=== PATIENT | male | born 1965 | race Caucasian/White ===

== ENCOUNTER 2018-10-03 10:03 | Inpatient (IN) | payer BC, SELFPAY ==
[2018-10-03] VITALS (76 sets, daily range): BP systolic 107–155; BP diastolic 64–94; PULSE 61–87; RESP 9–25; TEMP 36.5–36.7; O2SAT 94–100
--- NOTE | 2018-10-03 10:31 | NUR.NOTE ---
MD Pina is at the bedside.
--- NOTE | 2018-10-03 10:49 | DI.RAD_ITS ---
SYMPTOM/DIAGNOSIS: CHEST PAIN PORTABLE AP CHEST: 10/03 The heart is not enlarged. The lungs are clear and well expanded. CONCLUSION: No evidence of acute disease.
[2018-10-03] MEDS: Aspirin 81 MG CHEW 324 MG CH (10:55)
[2018-10-03 11:03] LABS: Abs Immature Grans 0.02 k/cumm (0.0-0.09); Absolute Basophil Count 0.03 k/cumm (0.0-0.2); Absolute Eosinophil Count 0.11 k/cumm (0.0-0.7); Absolute Lymphocyte Count 2.32 k/cumm (1.2-3.4); Absolute Monocyte Count 0.61 k/cumm (0.11-0.7); Absolute Neutrophil Count 4.59 k/cumm (1.2-6.7); Basophils % 0.4; Eosinophils % 1.4; HCT 47.4 % (40.0-50.0); HGB 16.5 g/dL (13.5-17.5); Immature Grans % 0.3; Lymphocytes % 30.2; Mean Corp. HGB Concentration 34.8 g/dL (32.0-36.0); Mean Corpuscular Hemoglobin 32.5 pg (27.0-33.0); Mean Corpuscular Volume 93.5 fL (80-95); Mean Platelet Volume 10.5 fL (8.0-11.0); Monocytes % 7.9; Neutrophils % 59.8; Platelet Count 200 x1000/uL (130-400); RBC 5.07 m/cumm (4.50-6.00); RBC Distribution Width 12.8 % (11.8-14.1); White Blood Cell Count 7.68 k/cumm (4.4-10.8)
[2018-10-03 11:23] LABS: ALT 36 U/L (12-78); AST 32 U/L (15-37); Albumin 3.6 g/dL (3.4-5.0); Alkaline Phosphatase 46 U/L (46-116); Anion Gap 8.8 mmol/L (3-11); BUN 6 mg/dL (7-18); Bilirubin, Total 0.3 mg/dL (0.2-1.0); CO2 28.2 mmol/L (21.0-32.0); CREATININE 0.67 mg/dL (0.70-1.30); Calcium 8.9 mg/dL (8.5-10.1); Chloride 102 mmol/L (98-107); Glucose 94 mg/dL (70-100); Magnesium 1.7 mg/dL (1.8-2.4); Sodium 139 mmol/L (136-145); Total Protein 7.2 g/dL (6.4-8.2)
[2018-10-03 11:27] LABS: Troponin I 0.09 ng/mL (0.00-0.06)
--- NOTE | 2018-10-03 11:28 | W.ED.GENAD ---
Discharge Plan Disposition Condition: Stable Discharge Details Chief Complaint: Chest Pain Reason For Visit: NSTEMI Admit Date/Time: 10/03/18 12:02 Admit Provider: Gutierrez Lipscomb Attending Provider: Gutierrez Lipscomb Primary Care Provider: Sujey Harvey ED Provider: Wiliam Pina Discharge Orders Discharge Orders: Discharge Order (Routine); Ordered 10/03/18 Ordered By: Gutierrez Lipscomb Discharge Data Discharge Date/Time-TO BE ENTERED AT DEPARTURE: 10/03/18 21:41 Medical Decision Making 11:40 -- Patient was seen immediately on arrival. 52-year-old male presents with abnormal EKG showing ST depressions and intermittent chest tightness. No chest pain on exam. Patient is hemodynamically stable. ECG reviewed and interpreted by me: Sinus rhythm 64 bpm, normal axis, T wave inversions with ST depressions noted in leads II, 3, aVF, V3 to V6, there is less than [address] elevation noted in V1 and V2. High concern for ACS. Troponin 0.09. Plan to treat with heparin bolus and infusion, aspirin, Plavix. I will call [facility] cardiology to request transfer. 11:47 -- Spoke with [facility] transfer center - emergent transfer request refused, states not able to accept cardiac patients. 11:54 -- Dr. Saravia will accept patient in transfer but no beds immediately available - may not be able to accept today. Plan to admit to ICU pending transfer. HPI General Mode of arrival: ambulatory. Date/Time Provider Initiated Documentation: 10/03/18 10:49. Limitations to Documentation: no limitations. Information obtained by: patient. HPI Narrative: 52-year-old male smoker, here with a chief complaint of abnormal EKG. Patient notes he was having retinal eye surgery on 09/18/2018 and there is noted to be some changes on the monitor -he specifically notes that they told him he had ST depressions. He did not have any chest pain at that time and he was instructed to follow-up with his primary care physician. He followed up with his primary care physician who ordered a stress test which she was going to have today. In the cardiac stress lab he was noted to have abnormal EKG with ST depressions and mild chest pain at that time. Stress test was cancelled and he was directed to come to the emergency department. At this time he has no chest pain. He has had mild intermittent chest tightness over the past few weeks. Symptoms can occur at rest. He has a few episodes a day that are brief in duration. They are not associated with exertion but he does have some dyspnea on exertion. He denies leg swelling or calf pain. No shortness of breath at this time. Related Data Home Medications Medication Instructions Recorded Confirmed atropine 1 drp OPHTHALMIC (EYE) ONCE 10/03/18 10/03/18 moxifloxacin 1 drp OPHTHALMIC (EYE) QID 10/03/18 10/03/18 prednisolone acetate 1 drp OPHTHALMIC (EYE) Q4H 10/03/18 10/03/18 Allergies Allergy/AdvReac Type Severity Reaction Status Date / Time No Known Allergies Allergy Unverified 10/03/18 10:29 General Stated Complaint: Chest Pain MARISOL: 2 Review of Systems Review of Systems All systems reviewed & are unremarkable except as noted in HPI and below PFSH Social History Smoking/Tobacco Use Status: Current every day Social History Smoking/Tobacco Use Status: Current every day Exam Const General: cooperative and no acute distress HENMT Head: normocephalic and atraumatic Mouth: moist mucous membranes Eyes Conjunctivae: normal conjunctivae Sclera: normal sclerae EOM: EOM intact bilaterally Neck Neck: trachea midline and supple Resp Auscultation: clear to auscultation bilaterally, no rales, no rhonchi and no wheezes Cardio Jugular venous pressure: no JVD Rate: regular rate and not tachycardic Rhythm: regular rhythm GI Palpation: soft, not firm, no guarding, no masses, not rigid and nontender Skin General skin exam: no rashes or lesions noted Neuro General: alert, awake, oriented x3 and tone normal Extrem General: no calf tenderness bilaterally and no edema Psych Appearance: grossly normal Mental Status: mental status grossly normal Speech and Movement: speech and movement normal Course Vital Signs Temperature 36.7 C 10/03/18 10:15 Pulse 69 10/03/18 10:15 Respiratory Rate 14 10/03/18 10:15 Blood Pressure 134/86 10/03/18 10:15 Pulse Oximetry 99 10/03/18 10:15 Temperature 36.7 C 10/03/18 10:15 Temperature Source Temporal Artery Scan 10/03/18 10:15 Pulse 69 10/03/18 10:15 Respiratory Rate 14 10/03/18 10:15 Blood Pressure 134/86 10/03/18 10:15 Blood Pressure Position Sitting 10/03/18 10:15 Pulse Oximetry 99 10/03/18 10:15 Oxygen Delivery Method Room Air 10/03/18 10:15 Oxygen Flow Rate 0 10/03/18 10:15 Pain Level 1 10/03/18 10:15 Comment 10/03/18 10:15 Lab/Test Results Lab/Test Results: Laboratory Tests Range/Units 10/03/18 10:45 WBC (4.4-10.8) k/cumm 7.68 RBC (4.50-6.00) m/cumm 5.07 Hgb (13.5-17.5) g/dL 16.5 Hct (40.0-50.0) % 47.4 MCV (80-95) fL 93.5 MCH (27.0-33.0) pg 32.5 MCHC (32.0-36.0) g/dL 34.8 RDW (11.8-14.1) % 12.8 Plt Count (130-400) x1000/uL 200 MPV (8.0-11.0) fL 10.5 Immature Gran % 0.3 Neutrophils % 59.8 Lymphocytes % 30.2 Monocytes % 7.9 Eosinophils % 1.4 Basophils % 0.4 Absolute Neutrophils (1.2-6.7) k/cumm 4.59 Absolute Lymphocytes (1.2-3.4) k/cumm 2.32 Absolute Monocytes (0.11-0.7) k/cumm 0.61 Absolute Eosinophils (0.0-0.7) k/cumm 0.11 Absolute Basophils (0.0-0.2) k/cumm 0.03 Critical Care Time Critical Care Time: Yes Total Critical Care Time: 40 Attestation: I spent greater than 40 minutes addressing this patient's immediate life threats
--- NOTE | 2018-10-03 11:28 | NUR.NOTE ---
Pt. resting in NAD, VSS on the monitor. Troponing resulted at 0.09, MD aware and entering orders currently.
--- NOTE | 2018-10-03 11:32 | ED.GENADUL_ITS ---
Discharge Plan Disposition Condition: Stable Discharge Details Chief Complaint: Chest Pain Reason For Visit: NSTEMI Admit Date/Time: 10/03/18 12:02 Admit Provider: Gutierrez Lipscomb Attending Provider: Gutierrez Lipscomb Primary Care Provider: Sujey Harvey ED Provider: Wiliam Pian Discharge Orders Discharge Orders: Discharge Order (Routine); Ordered 10/03/18 Ordered By: Gutierrez Lipscomb Discharge Data Discharge Date/Time-TO BE ENTERED AT DEPARTURE: 10/03/18 21:41 Medical Decision Making 11:40 -- Patient was seen immediately on arrival. 52-year-old male presents with abnormal EKG showing ST depressions and intermittent chest tightness. No chest pain on exam. Patient is hemodynamically stable. ECG reviewed and interpreted by me: Sinus rhythm 64 bpm, normal axis, T wave inversions with ST depressions noted in leads II, 3, aVF, V3 to V6, there is less than [address] elevation noted in V1 and V2. High concern for ACS. Troponin 0.09. Plan to treat with heparin bolus and infusion, aspirin, Plavix. I will call [facility] [place] to request transfer. 11:47 -- Spoke with [facility] [place] - emergent transfer request refused, states not able to accept cardiac patients. 11:54 -- Dr. Saravia will accept patient in transfer but no beds immediately available - may not be able to accept today. Plan to admit to ICU pending transfer. HPI General Mode of arrival: ambulatory . Date/Time Provider Initiated Documentation: 10/03/18 10:49 . Limitations to Documentation: no limitations . Information obtained by: patient . HPI Narrative: 52-year-old male smoker, here with a chief complaint of abnormal EKG. Patient notes he was having retinal eye surgery on 09/18/2018 and there is noted to be some changes on the monitor -he specifically notes that they told him he had ST depressions. He did not have any chest pain at that time and he was instructed to follow-up with his primary care physician. He followed up with his primary care physician who ordered a stress test which she was going to have today. In the cardiac stress lab he was noted to have abnormal EKG with ST depressions and mild chest pain at that time. Stress test was cancelled and he was directed to come to the emergency department. At this time he has no chest pain. He has had mild intermittent chest tightness over the past few weeks. Symptoms can occur at rest. He has a few episodes a day that are brief in duration. They are not associated with exertion but he does have some dyspnea on exertion. He denies leg swelling or calf pain. No shortness of breath at this time. Related Data Home Medications Medication Instructions Recorded Confirmed atropine 1 drp OPHTHALMIC (EYE) ONCE 10/03/18 10/03/18 moxifloxacin 1 drp OPHTHALMIC (EYE) QID 10/03/18 10/03/18 prednisolone acetate 1 drp OPHTHALMIC (EYE) Q4H 10/03/18 10/03/18 Allergies Allergy/AdvReac Type Severity Reaction Status Date / Time No Known Allergies Allergy Unverified 10/03/18 10:29 General Stated Complaint: Chest Pain MARISOL: 2 Review of Systems Review of Systems All systems reviewed & are unremarkable except as noted in HPI and below PFSH Social History Smoking/Tobacco Use Status: Current every day Social History Smoking/Tobacco Use Status: Current every day Exam Const General: cooperative and no acute distress HENMT Head: normocephalic and atraumatic Mouth: moist mucous membranes Eyes Conjunctivae: normal conjunctivae Sclera: normal sclerae EOM: EOM intact bilaterally Neck Neck: trachea midline and supple Resp Auscultation: clear to auscultation bilaterally, no rales, no rhonchi and no wheezes Cardio Jugular venous pressure: no JVD Rate: regular rate and not tachycardic Rhythm: regular rhythm GI Palpation: soft, not firm, no guarding, no masses, not rigid and nontender Skin General skin exam: no rashes or lesions noted Neuro General: alert, awake, oriented x3 and tone normal Extrem General: no calf tenderness bilaterally and no edema Psych Appearance: grossly normal Mental Status: mental status grossly normal Speech and Movement: speech and movement normal Course Vital Signs Temperature 36.7 C 10/03/18 10:15 Pulse 69 10/03/18 10:15 Respiratory Rate 14 10/03/18 10:15 Blood Pressure 134/86 10/03/18 10:15 Pulse Oximetry 99 10/03/18 10:15 Temperature 36.7 C 10/03/18 10:15 Temperature Source Temporal Artery Scan 10/03/18 10:15 Pulse 69 10/03/18 10:15 Respiratory Rate 14 10/03/18 10:15 Blood Pressure 134/86 10/03/18 10:15 Blood Pressure Position Sitting 10/03/18 10:15 Pulse Oximetry 99 10/03/18 10:15 Oxygen Delivery Method Room Air 10/03/18 10:15 Oxygen Flow Rate 0 10/03/18 10:15 Pain Level 1 10/03/18 10:15 Comment 10/03/18 10:15 Lab/Test Results Lab/Test Results: Laboratory Tests Range/Units 10/03/18 10:45 WBC (4.4-10.8) k/cumm 7.68 RBC (4.50-6.00) m/cumm 5.07 Hgb (13.5-17.5) g/dL 16.5 Hct (40.0-50.0) % 47.4 MCV (80-95) fL 93.5 MCH (27.0-33.0) pg 32.5 MCHC (32.0-36.0) g/dL 34.8 RDW (11.8-14.1) % 12.8 Plt Count (130-400) x1000/uL 200 MPV (8.0-11.0) fL 10.5 Immature Gran % 0.3 Neutrophils % 59.8 Lymphocytes % 30.2 Monocytes % 7.9 Eosinophils % 1.4 Basophils % 0.4 Absolute Neutrophils (1.2-6.7) k/cumm 4.59 Absolute Lymphocytes (1.2-3.4) k/cumm 2.32 Absolute Monocytes (0.11-0.7) k/cumm 0.61 Absolute Eosinophils (0.0-0.7) k/cumm 0.11 Absolute Basophils (0.0-0.2) k/cumm 0.03 Critical Care Time Critical Care Time: Yes Total Critical Care Time: 40 Attestation: I spent greater than 40 minutes addressing this patient's immediate life threats
[2018-10-03] MEDS: Clopidogrel 300 MG TAB PO (12:01)
--- NOTE | 2018-10-03 12:30 | MERGE_ITS ---
*[facility]* *[facility]* [address] [place] [address] Date of study: 10/03/2018 Transthoracic Echocardiography M-mode, complete 2D, complete spectral Doppler, and color Doppler *STUDY CONCLUSIONS* Summary: 1. Left ventricle: The cavity size was normal. Wall thickness was increased in a pattern of mild LVH. Systolic function was normal. The estimated ejection fraction was 55-60%. Wall motion was normal; there were no regional wall motion abnormalities. 2. Right ventricle: The cavity size was normal. Systolic function was normal. 3. Pulmonary arteries: Pulmonary systolic pressure was increased, in the range of 40mm Hg to 45mm Hg. 4. Inferior vena cava: The vessel was patent and normal in size. The respirophasic diameter changes were in the normal range (greater than or equal to 50%), consistent with normal central venous pressure. *PATIENT PRESENTATION* Height: 177.8cm ((70in) ) S/D Pressure: 118 / 78 Weight: 76.2kg ((167.6lb) ) BSA: 1.95m^2 Test start time: 12:45 PM. Test stop time: 01:45 PM. 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 This study was interpreted by [facility]. Pertinent images and digital data are archived for permanent storage and are available for subsequent review. No prior study was available for comparison. Study status: STAT. Transthoracic echocardiography. M-mode, complete 2D, complete spectral Doppler, and color Doppler. A Transthoracic Echocardiogram was performed. Scanning was performed from the parasternal, apical, subcostal, and suprasternal notch acoustic windows. Images were obtained using an [id number] cardiac ultrasound machine. Image quality was adequate. Study completion: The patient tolerated the procedure well. There were no complications. History: PMH: NSTEMI. *CARDIAC ANATOMY* Left ventricle: The cavity size was normal. Wall thickness was increased in a pattern of mild LVH. Systolic function was normal. The estimated ejection fraction was 55-60%. Wall motion was normal; there were no regional wall motion abnormalities. Findings consistent with diastolic dysfunction. There was no evidence of elevated ventricular filling pressure by Doppler parameters. Aortic valve: Trileaflet; mildly thickened leaflets. Mobility was not restricted. Doppler: Transvalvular velocity was within the normal range. There was no stenosis. There was no significant regurgitation. VTI ratio of LVOT to aortic valve: 0.86. Valve area (VTI): 2.4cm^2. Indexed valve area (VTI): 1.2cm^2/m^2. Peak velocity ratio of LVOT to aortic valve: 0.77. Valve area (Vmax): 2.1cm^2. Indexed valve area (Vmax): 1.1cm^2/m^2. Mean velocity ratio of LVOT to aortic valve: 0.76. Valve area (Vmean): 2.1cm^2. Indexed valve area (Vmean): 1.1cm^2/m^2. Mean gradient (S): 3mm Hg. Peak gradient (S): 4.9mm Hg. Aorta: Aortic root: The aortic root was normal in size. Ascending aorta: The ascending aorta was normal in size. Mitral valve: Mildly thickened leaflets. Mobility was not restricted. Doppler: Transvalvular velocity was within the normal range. There was no evidence for stenosis. There was trivial regurgitation. Valve area by pressure half-time: 2.6cm^2. Indexed valve area by pressure half-time: 1.3cm^2/m^2. Left atrium: The atrium was normal in size. Right ventricle: The cavity size was normal. Systolic function was normal. Pulmonic valve: Poorly visualized. Doppler: Transvalvular velocity was within the normal range. There was no evidence for stenosis. There was trivial regurgitation. Tricuspid valve: Structurally normal valve. Doppler: Transvalvular velocity was within the normal range. There was no evidence for stenosis. There was mild regurgitation. Pulmonary artery: Poorly visualized. Pulmonary systolic pressure was increased, in the range of 40mm Hg to 45mm Hg. Right atrium: The atrium was normal in size. Pericardium: There was no pericardial effusion. Systemic veins: Inferior vena cava: Well visualized. The vessel was patent and normal in size. The respirophasic diameter changes were in the normal range (greater than or equal to 50%), consistent with normal central venous pressure. Baseline ECG: Normal sinus rhythm. Measurements Left ventricle Value Reference LV ID, ED, PLAX 4.2 cm 3.5 - 6.0 LV ID, ES, PLAX 2.8 cm 2.1 - 4.0 LV PW thickness, ED, PLAX 1.0 cm LV end-diastolic volume, 1-p A2C 54 ml LV ejection fraction, 1-p A2C 59 % LV end-diastolic volume, 1-p A4C 43 ml LV ejection fraction, 1-p A4C 65 % LV e', lateral 0.116 m/sec LV E/e', lateral 5 LV e', medial 0.082 m/sec LV E/e', medial 8 LV e', average 0.099 m/sec LV E/e', average 6 Ventricular septum Value Reference IVS thickness, ED, PLAX 1.5 cm LVOT Value Reference LVOT ID, A-P 1.9 cm LVOT area 2.7 cm^2 LVOT peak velocity, S 0.85 m/sec LVOT mean velocity, S 0.63 m/sec LVOT VTI, S 19.9 cm LVOT peak gradient, S 2.9 mm Hg LVOT mean gradient, S 1.7 mm Hg Stroke volume (SV), LVOT DP 54 ml Stroke index (SV/bsa), LVOT DP 28 ml/m^2 Aortic valve Value Reference Aortic valve peak velocity, S 1.1 m/sec Aortic valve mean velocity, S 0.83 m/sec Aortic valve VTI, S 23.0 cm Aortic mean gradient, S 3 mm Hg Aortic peak gradient, S 4.9 mm Hg VTI ratio, LVOT/AV 0.86 Aortic valve area, VTI 2.4 cm^2 Velocity ratio, peak, LVOT/AV 0.77 Aortic valve area, peak velocity 2.1 cm^2 Velocity ratio, mean, LVOT/AV 0.76 Aortic valve area, mean velocity 2.1 cm^2 Aortic valve area/bsa, mean velocity 1.1 cm^2/m^2 Aorta Value Reference Aortic root ID, ED 2.8 cm Ascending aorta ID, A-P, S 2.4 cm Left atrium Value Reference LA ID, A-P, ES 2.8 cm LA ID/bsa, A-P 1.5 cm/m^2 <=2.2 LA area, ES, A4C 19.2 cm^2 8.8 - 23.4 LA area, ES, A2C 16 cm^2 LA volume/bsa, ES, 1-p A4C 28 ml/m^2 LA volume, ES, 2-p 47 ml LA volume/bsa, ES, 2-p 24 ml/m^2 LA/aortic root ratio 1.02 Mitral valve Value Reference Mitral E-wave peak velocity 0.63 m/sec Mitral A-wave peak velocity 0.35 m/sec Mitral deceleration time (H) 298 ms 150 - 230 Mitral pressure half-time 86 ms Mitral E/A ratio, peak 1.8 Mitral valve area, PHT, DP 2.6 cm^2 Pulmonary veins Value Reference Pulmonary vein peak velocity, S 0.62 m/sec Pulmonary vein peak velocity, D 0.6 m/sec Pulmonary vein velocity ratio, peak, 1.03 S/D Tricuspid valve Value Reference Tricuspid regurg peak velocity 3.1 m/sec Tricuspid peak RV-RA gradient 37.9 mm Hg Right atrium Value Reference RA area, ES, A4C 12 cm^2 8.3 - 19.5 Legend: (L) and (H) michele values outside specified reference range. I have personally reviewed the images and have reviewed and edited the reported findings. Electronically signed by Jesu Mckeon 10/03/2018 14:38
[2018-10-03] MEDS: Metoprolol 12.5 MG TAB PO (13:07)
--- NOTE | 2018-10-03 13:14 | NUR.NOTE ---
Echo in progress at the bedside.
[2018-10-03] MEDS: MAGNESIUM SULFATE 1 GM/100 ML BAG IVPB (13:56)
--- NOTE | 2018-10-03 14:40 | NUR.NOTE ---
Report given to Rasheeda in ICU.
[2018-10-03 14:48] LABS: Troponin I 0.08 ng/mL (0.00-0.06)
--- NOTE | 2018-10-03 15:46 | W.PM.HP.N ---
Assessment and Plan (1) Abnormal EKG: Current visit: Yes Status: Acute Abnormal EKG and mildly elevated troponin in patient with history of tobacco and excessive alcohol use, along with intermittent chest tightness. EKG interpreted as sinus rhythm with TWI in I, II, III & AVF, along with V3-V6. Although troponin elevation is minimal, equivocal, and unchanged on repeat check, Mr. Tomas is fairly highly risk with a good clinical history for CAD. Will admit, start on low dose BB with hold parameters, high potency statin, and aspirin. Also on prn NTG and morphine, along with oxygen if required. He was plavix loaded in the ED, and initiated on a heparin drip as well. ECHO findings reviewed and reassuring. (2) Excessive drinking alcohol: Current visit: Yes Status: Acute Patient reports upwards of 4-6 beers 2-3 times a week, but suspect potentially more. May warrant monitoring on CIWA protocol, but certainly with no history reported of DT's or withdrawl type symptoms in the past. History of Present Illness Chief Complaint: Chest Pain Narrative: 52-year-old man with a prior history of tobacco use and excessive alcohol use, admitted from [facility] emergency department with reported chest tightness and abnormal EKG. Mr. Tomas was reportedly seen in a follow-up surgery after surgical intervention last year for a detached retina. At the time of surgery he was noted to have an abnormal EKG, and sent for further evaluation with his PCP who scheduled him for an outpatient stress test. While in the cardiac stress lab he was noted to have an abnormal EKG with significant ST depressions. Further questioning revealed evidence of intermittent chest tightness that the patient had been experiencing for some months. Based on this his testing was cancelled and he was directed to the emergency department for further evaluation. Workup in the emergency included a normal-appearing CBC, essentially normal comprehensive metabolic panel, but with a mildly elevated troponin positive at 0.09. Review of his EKG also showed evidence of extensive T wave abnormalities. His chest x-ray was interpreted without evidence of acute disease. Given the above clinical picture the decision was made to transfer the patient for a diagnostic and potentially therapeutic left heart catheterization?Mr. Tomas was accepted at [facility] but due to lack of bed availability is being admitted here overnight for potential transfer in the morning. Review of Systems Review of Systems All systems reviewed & are unremarkable except as noted in HPI and below PFSH Social History Smoking/Tobacco Use Status: Current every day Meds Allergies Allergy/AdvReac Type Severity Reaction Status Date / Time No Known Allergies Allergy Unverified 10/03/18 10:29 Exam Narrative Exam Narrative: General: Patient appears comfortable, AAOX3, NAD Neck: Supple CV: Regular, nontachycardic, S1S2, No rubs, murmurs, or gallops. Pulmonary: Clear to auscultation bilaterally, no crackles, wheezing, or rhonchi Abdomen: + Bowel Sounds, soft, nontender, nondistended Vascular: No lower extremity edema Neurologic: CN II-XII grossly intact. No focal deficits. Psych: Normal mood and affect. Results Imaging Chest x-ray: report reviewed Additional studies: Exam(s) a US:US echocardiogram *[facility]* *[facility]* [address] [place] [address] Date of study: 10/03/2018 Transthoracic Echocardiography M-mode, complete 2D, complete spectral Doppler, and color Doppler *STUDY CONCLUSIONS* Summary: 1. Left ventricle: The cavity size was normal. Wall thickness was increased in a pattern of mild LVH. Systolic function was normal. The estimated ejection fraction was 55-60%. Wall motion was normal; there were no regional wall motion abnormalities. 2. Right ventricle: The cavity size was normal. Systolic function was normal. 3. Pulmonary arteries: Pulmonary systolic pressure was increased, in the range of 40mm Hg to 45mm Hg. 4. Inferior vena cava: The vessel was patent and normal in size. The respirophasic diameter changes were in the normal range (greater than or equal to 50%), consistent with normal central venous pressure. annam(s) a RAD:XR portable chest AP SYMPTOM/DIAGNOSIS: CHEST PAIN PORTABLE AP CHEST: 10/03 The heart is not enlarged. The lungs are clear and well expanded. CONCLUSION: No evidence of acute disease. Labs : 10/03/18 10:45 10/03/18 10:45 Laboratory Results - last 24 hr 10/03/18 10/03/18 10/03/18 10:45 10:45 14:20 WBC 7.68 RBC 5.07 Hgb 16.5 Hct 47.4 MCV 93.5 MCH 32.5 MCHC 34.8 RDW 12.8 Plt Count 200 MPV 10.5 Immature Gran % 0.3 Neutrophils % 59.8 Lymphocytes % 30.2 Monocytes % 7.9 Eosinophils % 1.4 Basophils % 0.4 Absolute Neutrophils 4.59 Absolute Lymphocytes 2.32 Absolute Monocytes 0.61 Absolute Eosinophils 0.11 Absolute Basophils 0.03 Sodium 139 Potassium 4.0 Chloride 102 Carbon Dioxide 28.2 Anion Gap 8.8 BUN 6 L Creatinine 0.67 L Estimated GFR/1.73 m2 >= 60.00 Glucose 94 Calcium 8.9 Magnesium 1.7 L Total Bilirubin 0.3 AST 32 ALT 36 Alkaline Phosphatase 46 Troponin I 0.09 H 0.08 H Total Protein 7.2 Albumin 3.6 Last Vital Signs Temp 36.7 C 10/03/18 10:15 Pulse 61 10/03/18 13:16 Resp 13 10/03/18 13:20 BP 107/72 10/03/18 13:16 Pulse Ox 97 10/03/18 13:20
--- NOTE | 2018-10-03 15:57 | HPE_ITS ---
Assessment and Plan (1) Abnormal EKG: Current visit: Yes Status: Acute Abnormal EKG and mildly elevated troponin in patient with history of tobacco and excessive alcohol use, along with intermittent chest tightness. EKG interpreted as sinus rhythm with TWI in I, II, III & AVF, along with V3-V6. Although troponin elevation is minimal, equivocal, and unchanged on repeat check , Mr. Tomas is fairly highly risk with a good clinical history for CAD. Will admit, start on low dose BB with hold parameters, high potency statin, and aspirin. Also on prn NTG and morphine, along with oxygen if required. He was plavix loaded in the ED, and initiated on a heparin drip as well. ECHO findings reviewed and reassuring. (2) Excessive drinking alcohol: Current visit: Yes Status: Acute Patient reports upwards of 4-6 beers 2-3 times a week, but suspect potentially more. May warrant monitoring on CIWA protocol, but certainly with no history reported of DT's or withdrawl type symptoms in the past. History of Present Illness Chief Complaint: Chest Pain Narrative: 52-year-old man with a prior history of tobacco use and excessive alcohol use, admitted from [facility] emergency department with reported chest tightness and abnormal EKG. Mr. Tomas was reportedly seen in a follow-up surgery after surgical intervention last year for a detached retina. At the time of surgery he was noted to have an abnormal EKG, and sent for further evaluation with his PCP who scheduled him for an outpatient stress test. While in the cardiac stress lab he was noted to have an abnormal EKG with significant ST depressions. Further questioning revealed evidence of intermittent chest tightness that the patient had been experiencing for some months. Based on this his testing was cancelled and he was directed to the emergency department for further evaluation. Workup in the emergency included a normal-appearing CBC, essentially normal comprehensive metabolic panel, but with a mildly elevated troponin positive at 0.09. Review of his EKG also showed evidence of extensive T wave abnormalities. His chest x-ray was interpreted without evidence of acute disease. Given the above clinical picture the decision was made to transfer the patient for a diagnostic and potentially therapeutic left heart catheterization?Mr. Tomas was accepted at [facility] but due to lack of bed availability is being admitted here overnight for potential transfer in the morning. Review of Systems Review of Systems All systems reviewed & are unremarkable except as noted in HPI and below PFSH Social History Smoking/Tobacco Use Status: Current every day Meds Allergies Allergy/AdvReac Type Severity Reaction Status Date / Time No Known Allergies Allergy Unverified 10/03/18 10:29 Exam Narrative Exam Narrative: General: Patient appears comfortable, AAOX3, NAD Neck: Supple CV: Regular, nontachycardic, S1S2, No rubs, murmurs, or gallops. Pulmonary: Clear to auscultation bilaterally, no crackles, wheezing, or rhonchi Abdomen: + Bowel Sounds, soft, nontender, nondistended Vascular: No lower extremity edema Neurologic: CN II-XII grossly intact. No focal deficits. Psych: Normal mood and affect. Results Imaging Chest x-ray: report reviewed Additional studies: Exam(s) a US:US echocardiogram *[facility]* *[facility]* [address] [place] [address] Date of study: 10/03/2018 Transthoracic Echocardiography M-mode, complete 2D, complete spectral Doppler, and color Doppler *STUDY CONCLUSIONS* Summary: 1. Left ventricle: The cavity size was normal. Wall thickness was increased in a pattern of mild LVH. Systolic function was normal. The estimated ejection fraction was 55-60%. Wall motion was normal; there were no regional wall motion abnormalities. 2. Right ventricle: The cavity size was normal. Systolic function was normal. 3. Pulmonary arteries: Pulmonary systolic pressure was increased, in the range of 40mm Hg to 45mm Hg. 4. Inferior vena cava: The vessel was patent and normal in size. The respirophasic diameter changes were in the normal range (greater than or equal to 50%), consistent with normal central venous pressure. annam(s) a RAD:XR portable chest AP SYMPTOM/DIAGNOSIS: CHEST PAIN PORTABLE AP CHEST: 10/03 The heart is not enlarged. The lungs are clear and well expanded. CONCLUSION: No evidence of acute disease. Labs : 10/03/18 10:45 10/03/18 10:45 Laboratory Results - last 24 hr 10/03/18 10/03/18 10/03/18 10:45 10:45 14:20 WBC 7.68 RBC 5.07 Hgb 16.5 Hct 47.4 MCV 93.5 MCH 32.5 MCHC 34.8 RDW 12.8 Plt Count 200 MPV 10.5 Immature Gran % 0.3 Neutrophils % 59.8 Lymphocytes % 30.2 Monocytes % 7.9 Eosinophils % 1.4 Basophils % 0.4 Absolute Neutrophils 4.59 Absolute Lymphocytes 2.32 Absolute Monocytes 0.61 Absolute Eosinophils 0.11 Absolute Basophils 0.03 Sodium 139 Potassium 4.0 Chloride 102 Carbon Dioxide 28.2 Anion Gap 8.8 BUN 6 L Creatinine 0.67 L Estimated GFR/1.73 m2 >= 60.00 Glucose 94 Calcium 8.9 Magnesium 1.7 L Total Bilirubin 0.3 AST 32 ALT 36 Alkaline Phosphatase 46 Troponin I 0.09 H 0.08 H Total Protein 7.2 Albumin 3.6 Last Vital Signs Temp 36.7 C 10/03/18 10:15 Pulse 61 10/03/18 13:16 Resp 13 10/03/18 13:20 BP 107/72 10/03/18 13:16 Pulse Ox 97 10/03/18 13:20
[2018-10-03] MEDS: Normal Saline Flush 10 ML SYR IVP (17:00)
[2018-10-03] MEDS: Atorvastatin 40 MG TAB 80 MG PO (17:01)
[2018-10-03] MEDS: Moxifloxacin 0.5% 3 ML BTL OD (18:56)
[2018-10-03 19:07] LABS: Troponin I 0.08 ng/mL (0.00-0.06)
[2018-10-03 19:13] LABS: PTT Activated 81.4 sec (21.0-31.4)
--- NOTE | 2018-10-03 19:25 | DSE_ITS ---
Date of service: 10/03/18 Time of Service: 19:23 DS: Diagnosis Discharge Diagnosis (1) Abnormal EKG: Status: Acute (2) Excessive drinking alcohol: Status: Acute Discharge Plan Disposition Patient Disposition: EMILIA RAMIREZ ([facility]) Condition: Stable Discharge Details Chief Complaint: Chest Pain Reason For Visit: NSTEMI Admit Date/Time: 10/03/18 12:02 Admit Provider: Gutierrez Lipscomb Attending Provider: Gutierrez Lipscomb Primary Care Provider: Sujey Harvey ED Provider: Wiliam Pina Hospital Course Hospital Course: Chief Complaint: Chest Pain Narrative: 52-year-old man with a prior history of tobacco use and excessive alcohol use, admitted from [facility] emergency department with reported chest tightness and abnormal EKG. Mr. Tomas was reportedly seen in a follow-up surgery after surgical intervention last year for a detached retina. At the time of surgery he was noted to have an abnormal EKG, and sent for further evaluation with his PCP who scheduled him for an outpatient stress test. While in the cardiac stress lab he was noted to have an abnormal EKG with significant ST depressions. Further questioning revealed evidence of intermittent chest tightness that the patient had been experiencing for some months. Based on this his testing was cancelled and he was directed to the emergency department for further evaluation. Workup in the emergency included a normal-appearing CBC, essentially normal comprehensive metabolic panel, but with a mildly elevated troponin positive at 0.09. Review of his EKG also showed evidence of extensive T wave abnormalities. His chest x-ray was interpreted without evidence of acute disease. Given the above clinical picture the decision was made to transfer the patient for a diagnostic and potentially therapeutic left heart catheterization?Mr. Tomas was accepted at [facility] but due to lack of bed availability is being admitted here overnight for potential transfer when able. Hospital Course: (1) Abnormal EKG: Abnormal EKG and mildly elevated troponin in patient with history of tobacco and excessive alcohol use, along with intermittent chest tightness. EKG interpreted as sinus rhythm with TWI in I, II, III & AVF, along with V3-V6. Although troponin elevation is minimal, equivocal, and unchanged on repeat check , Mr. Tomas is fairly highly risk with a good clinical history for CAD. Will admit, start on low dose BB with hold parameters, high potency statin, and aspirin. Also on prn NTG and morphine, along with oxygen if required. He was plavix loaded in the ED, and initiated on a heparin drip as well. ECHO findings reviewed and reassuring. (2) Excessive drinking alcohol: Patient reports upwards of 4-6 beers 2-3 times a week, but suspect potentially more. May warrant monitoring on CIWA protocol, but certainly with no history reported of DT's or withdrawl type symptoms in the past. Home Meds and New Rx's Prescriptions: No Action atropine 1 % Drops 1 drp OPHTHALMIC (EYE) ONCE RF: 0 prednisolone acetate 1 % Drops,Suspension 1 drp OPHTHALMIC (EYE) Q4H RF: 0 moxifloxacin 0.5 % Drops 1 drp OPHTHALMIC (EYE) QID RF: 0 Discharge Orders Discharge Orders: Discharge Order (Routine); Ordered 10/03/18 Ordered By: Gutierrez Lipscomb DS: Data Vitals/I&O Vitals and I&O: Vital Signs Temperature 36.5 C 10/03/18 15:15 Temperature Source Tympanic 10/03/18 15:15 Pulse 78 10/03/18 15:15 Pulse 68 10/03/18 13:20 Respiratory Rate 13 10/03/18 13:20 Respiratory Effort 10/03/18 15:15 Respiratory Depth Normal 10/03/18 15:15 Respiratory Pattern Normal 10/03/18 15:15 Blood Pressure 107/72 10/03/18 13:16 Blood Pressure Mean 81 10/03/18 13:16 Blood Pressure Position Sitting 10/03/18 15:15 Pulse Oximetry 97 10/03/18 13:20 Oxygen Delivery Method Room Air 10/03/18 15:15 Oxygen Flow Rate 0 10/03/18 15:15 Pain Level 0 10/03/18 15:15 Comment 10/03/18 10:15 Intake & Output 10/02/18 10/03/18 10/03/18 23:59 11:59 23:59 Intake Total 168.875 / 168.875 Balance 168.875 / 168.875 Weight 76.204 kg 76.204 kg Intake: IV 168.875 / 168.875 Labs on day of discharge: Labs from last 24 hours 10/03/18 10/03/18 10/03/18 18:32 18:32 14:20 WBC RBC Hgb Hct MCV MCH MCHC RDW Plt Count MPV Immature Gran % Neutrophils % Lymphocytes % Monocytes % Eosinophils % Basophils % Absolute Neutrophils Absolute Lymphocytes Absolute Monocytes Absolute Eosinophils Absolute Basophils APTT 81.4 H* Sodium Potassium Chloride Carbon Dioxide Anion Gap BUN Creatinine Estimated GFR/1.73 m2 Glucose Calcium Magnesium Total Bilirubin AST ALT Alkaline Phosphatase Troponin I 0.08 H 0.08 H Total Protein Albumin 10/03/18 10/03/18 10:45 10:45 WBC 7.68 RBC 5.07 Hgb 16.5 Hct 47.4 MCV 93.5 MCH 32.5 MCHC 34.8 RDW 12.8 Plt Count 200 MPV 10.5 Immature Gran % 0.3 Neutrophils % 59.8 Lymphocytes % 30.2 Monocytes % 7.9 Eosinophils % 1.4 Basophils % 0.4 Absolute Neutrophils 4.59 Absolute Lymphocytes 2.32 Absolute Monocytes 0.61 Absolute Eosinophils 0.11 Absolute Basophils 0.03 APTT Sodium 139 Potassium 4.0 Chloride 102 Carbon Dioxide 28.2 Anion Gap 8.8 BUN 6 L Creatinine 0.67 L Estimated GFR/1.73 m2 >= 60.00 Glucose 94 Calcium 8.9 Magnesium 1.7 L Total Bilirubin 0.3 AST 32 ALT 36 Alkaline Phosphatase 46 Troponin I 0.09 H Total Protein 7.2 Albumin 3.6 [facility] Social History Smoking/Tobacco Use Status: Current every day Social History Smoking/Tobacco Use Status: Current every day
== END 2018-10-03 20:40 | disposition short-term general hospital (02) | DRG 316 ==
LOC: ER 12:18 → ICU 15:07
PROVIDERS: Admitting Provider Internal Medicine; Emergency Provider Student in an Organized Health Care Education/Training Program; PCP Nurse Practitioner Family; Visit Provider Internal Medicine
DX: R94.31 Abnormal electrocardiogram [ECG] [EKG] (principal); F10.10 Alcohol abuse, uncomplicated; R07.89 Other chest pain; Z87.891 Personal history of nicotine dependence
CPT/HCPCS: 36415; 80053; 93005; 96365; 96366; 96376; 99223; 99285; NC; 71045; 83735; 84484; 85025; 85730; 93010; 93306; J3475; J3490

== ENCOUNTER 2021-09-12 03:24 | Outpatient (CLI) | payer BC, SELFPAY ==
[2021-09-12 10:18] LABS: Source Nasal/Nares
[2021-09-12 13:39] LABS: COVID-19 PCR Negative (Negative)
--- NOTE | 2021-09-13 17:02 | PDOC.ANES ---
Date of service: 09/13/21 Time of Service: 17:02 Anesthesia Note Report Anesthesia Note: Sacha was transported to [facility] in 2018 to r/o NSTEMI. In reviewing the records he did r/o for an NSTEMI and had a cardiac cath not requiring intervention. He was newly diagnosed with hypertrophic cardiomyopathy and was started on metoprolol, asa, and statin therapy and advised to follow up for medical management with a work adjustment instructor. Due to like circumstances he did not do that and is currently on only ASA. I spoke on the phone with him, and although he denies any cardiac complaints, we will be postponing his elective inguinal hernia surgery pending a followup with a work adjustment instructor. I advised if he could do this in reasonable time, there was a chance he may be able to have this surgery before the end of the year which he is motivated to do. He will schedule the appt. and then reschedule his surgery once complete. .
== END 2021-09-12 03:25 | disposition home or self-care (01) ==
LOC: LBO 03:24
PROVIDERS: PCP Physician Assistant; Visit Provider Surgery
DX: Z20.822 Contact with and (suspected) exposure to COVID-19 (principal); Z01.818 Encounter for other preprocedural examination
CPT/HCPCS: 87635

== ENCOUNTER 2021-10-13 13:37 | Outpatient (CLI) | payer BC, SELFPAY ==
--- NOTE | 2021-10-13 13:30 | RT.EKG_ITS ---
APPROVED REPORT Exam: Resting ECG Reason for Exam: mi, CMP Patient Location: O HR:67 bpm ECG Measurements Heart Rate 67 AXIS MO 134 P 41 QRSd 78 QRS 6 QT 429 T 228 QTc 453 Conclusion Sinus rhythm...normal P axis, V-rate 50- 99 LVH with repolarization abnormalities
== END 2021-10-13 13:38 | disposition home or self-care (01) ==
LOC: DI.CARD 13:38
PROVIDERS: PCP Physician Assistant; Visit Provider Internal Medicine Cardiovascular Disease
DX: I21.4 Non-ST elevation (NSTEMI) myocardial infarction (principal); I42.2 Other hypertrophic cardiomyopathy
CPT/HCPCS: 93010

== ENCOUNTER 2021-10-31 04:01 | Outpatient (CLI) | payer BC, SELFPAY ==
[2021-10-31 10:29] LABS: Source Nasal/Nares
[2021-10-31 14:17] LABS: COVID-19 PCR Negative (Negative)
== END 2021-10-31 04:02 | disposition home or self-care (01) ==
LOC: LBO 04:02
PROVIDERS: PCP Physician Assistant; Visit Provider Surgery
DX: Z20.822 Contact with and (suspected) exposure to COVID-19 (principal); Z01.818 Encounter for other preprocedural examination
CPT/HCPCS: 87635

== ENCOUNTER 2021-11-02 06:12 | Day surgery (SDC) | payer BC, SELFPAY ==
[2021-11-02] VITALS (11 sets, daily range): BP systolic 84–127; BP diastolic 53–80; PULSE 43–75; RESP 9–21; TEMP 36–36.3; O2SAT 95–100; BMI 23.1
--- NOTE | 2021-11-02 06:29 | W.PREOPHP ---
Assessment and Plan Assessment and plan (1) Left inguinal hernia: Status: Acute Assessment and plan: Mr. Tomas is a pleasant 55-year-old gentleman with a left inguinal hernia on exam. Its been there for about 3 months and is causing him discomfort. He has been wearing a truss for it. He is a heavy smoker of a pack a day and drinks at least 4 drinks every night. He has a history of a heart attack and cardiomyopathy. Last echo was in 2018. Discussed with him risks and benefits of the procedure. I did discuss with him that infection and recurrence are higher due to his smoking. I also reviewed with him a nerve block prior to surgery to help with postoperative pain. The patient does not want to take any narcotics. Patient has not been admitted for Covid. We will test him prior to surgery and have also asked him to quarantine between the time of his test and the procedure. Risks, benefits and complications have been reviewed. Complications include but are not limited to bleeding, infection, injury to vas, vessels and nerves, injury to bowel and adverse reaction to medications. Questions were entertained and answered to their satisfaction and they wished to proceed. COVID-19 testing explained to the patient. Reason for test reviewed. Quarantine per state requirements reviewed with patient. Patient understands and agrees to testing. Proceed with left inguinal hernia repair with mesh I will ask anesthesia for a TAP block to help with postoperative pain History of Present Illness Narrative: Mr. Tomas is a pleasant 55-year-old gentleman who noticed some discomfort in the left groin area about 3 months ago. Couple weeks prior to that he was trying to slide a heavy object with his left foot when it got caught and he felt a pop. He denies any urinary issues. He has been wearing a truss to help with the discomfort. He has had no nausea or vomiting. Past medical history is significant for heart attack and hypertrophic cardiomyopathy. He is also a smoker and drinker. He denies any chest pain or palpitations. He is able to walk up a flight of stairs without shortness of breath. ECHO: 1. Left ventricle: The cavity size was normal. Wall thickness was increased in a pattern of mild LVH. Systolic function was normal. The estimated ejection fraction was 55-60%. Wall motion was normal; there were no regional wall motion abnormalities. 2. Right ventricle: The cavity size was normal. Systolic function was normal. 3. Pulmonary arteries: Pulmonary systolic pressure was increased, in the range of 40mm Hg to 45mm Hg. 4. Inferior vena cava: The vessel was patent and normal in size. The respirophasic diameter changes were in the normal range (greater than or equal to 50%), consistent with normal central venous pressure. No changes in his health since he was seen in September Review of Systems Constitutional Constitutional: Denies fever(s) and Denies headache(s) Eyes Eyes: Denies change in vision ENT Ears, Nose, Mouth, and Throat: Denies headache(s) Cardiovascular Cardiovascular: Denies chest pain, Denies chest pain at rest, Denies irregular heart rhythm, Denies dyspnea and Denies dyspnea on exertion Respiratory Respiratory: Denies cough, Denies dyspnea and Denies dyspnea on exertion Gastrointestinal Gastrointestinal: Reports as per HPI Genitourinary Genitourinary: Denies dysuria, Denies urinary incontinence and Denies urinary urgency Neurologic Neurologic: Denies headache(s) Endocrine Endocrine: Reports system reviewed and no additional complaints, except as documented Hematologic/Lymphatic Hematologic/Lymphatic: Denies easy bruising and Denies lymphadenopathy PFSH All Active Problems Regular alcohol consumption (Acute) Cardiomyopathy (Acute) Genital herpes (Acute) Abnormal EKG (Acute) Left inguinal hernia (Acute) Dyspepsia (Acute) Medical History Acute non-ST elevation myocardial infarction (NSTEMI) 10/2018-pt. has not f/u with cardiology Excessive drinking alcohol Gastro-esophageal reflux disease without esophagitis (02/08/17) Hyperlipidemia Hypertrophic cardiomyopathy Retinal detachment Tobacco abuse Vocal cord polyp Surgical History History of biopsy Tonsil Biopsy 07/10/2013 History of cardiac cath 2018 History of eye surgery Retinal Surgery 2018 Family History Mother Atrial fibrillation Tumor Ovarian Tumor Brother High cholesterol Social History Smoking/Tobacco Use Status: Current every day Tobacco Type: cigarettes Years smoked: 40 Smoking risk assessment performed?: Yes Alcohol Intake: current Alcohol Intake frequency: 3 or more drinks per day Drug use: Never Substance use type: does not use Household members: none 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 Current gender identity: male What type of physical activity do you participate in: none Do you feel safe at home: Yes Additional Social history: lives alone Meds Allergies and Home Medications Allergies Allergy/AdvReac Type Severity Reaction Status Date / Time No Known Allergies Allergy Verified 11/02/21 06:18 Home Medications Medication Instructions Recorded Confirmed Type aspirin 81 mg tablet,delayed 81 mg PO DAILY 03/29/21 11/01/21 History release calcium carbonate 500 mg calcium 500 mg PO DAILY 03/29/21 11/02/21 History (1,250 mg) tablet coenzyme Q10 10 mg capsule 10 mg PO ONCE 03/29/21 11/02/21 History garlic 300 mg capsule 300 mg PO DAILY 03/29/21 11/01/21 History multivitamin 1 tab PO DAILY 03/29/21 11/02/21 History omega-3 fatty acids 1,000 mg 1,000 mg PO DAILY 03/29/21 11/02/21 History capsule timolol maleate 0.5 % eye drops 1 drp OPHTHALMIC (EYE) BID 03/29/21 11/02/21 History turmeric 400 mg capsule 400 mg PO DAILY 03/29/21 11/02/21 History famotidine 20 mg tablet 20 mg PO QHS #30 tab 09/09/21 11/01/21 Rx Exam Const General: healthy appearing and comfortable Resp Effort & Inspection: normal respiratory effort Auscultation: clear to auscultation bilaterally Cardio Rate: regular rate Rhythm: regular rhythm Heart Sounds: no click, no gallops and no murmurs GI Inspection: normal to inspection Palpation: soft, no hepatosplenomegaly, hernia (left inguinal hernia) and nontender
--- NOTE | 2021-11-02 06:31 | ROE_ITS ---
Date of service: 11/02/21 Time of Service: 08:48 Operative Note Operative Note DATE OF PROCEDURE: 11/02/21 PRE-OP DIAGNOSIS: left inguinal hernia POST-OP DIAGNOSIS: other (Left indirect and direct inguinal hernia, left hydroc amalia) PROCEDURE: left Inguinal hernia repair with mesh Left hydrocelectomy SURGEON: Yvonne Garcia [employer]YEAR STITCHER: Shi Calderon ANESTHESIA TYPE: General LMA/ETT (Duncan Deleon CRNA) and Primary Nerve Block Refer to Anesthesia Record ESTIMATED BLOOD LOSS: 25 PATHOLOGY: none sent COMPLICATIONS: None Patient was transported to: PACU Patient's condition: stable Implants: BARD Mesh: LOT- [id number] REF- [id number] 2025-11-01 Indications: Mr. Tomas is a pleasant 55-year-old gentleman with a left inguinal hernia on exam. Its been there for about 3 months and is causing him discomfort. He has been wearing a truss for it. He is a heavy smoker of a pack a day and drinks at least 4 drinks every night. He has a history of a heart attack and cardiomyopathy. Last echo was in 2018. Discussed with him risks and benefits of the procedure. I did discuss with him that infection and recurrence are higher due to his smoking. I also reviewed with him a nerve block prior to surgery to help with postoperative pain. The patient does not want to take any narcotics. Patient has not been admitted for Covid. We will test him prior to surgery and have also asked him to quarantine between the time of his test and the pr ocedure. Risks, benefits and complications have been reviewed. Complications include but are not limited to bleeding, infection, injury to vas, vessels and nerves, injury to bowel and adverse reaction to medications. Questions were entertained and answered to their satisfaction and they wished to proceed. COVID-19 testing explained to the patient. Reason for test reviewed. Quarantine per state requirements reviewed with patient. Patient understands and agrees to testing. Proceed with left inguinal hernia repair with mesh I will ask anesthesia for a TAP block to help with postoperative pain Findings: left indirect and direct inguinal hernia Left hydrocele Procedure Description: After informed concent was obtained the patient was taken to the operating room and placed in a supine position. Monitors and SCDs were applied and a timeout was done. The patient's name, date of , procedure type, procedure site, allergies to medications, preoperative antibiotic, and DVT prophylaxis were all reviewed. Fire risk was assessed. Next anesthesia did a tap block on the left side under ultrasound guidance. Please see their separate dictation. Once anesthesia was done the abdomen was prepped and draped in a sterile surgical fashion. 0.5% Marcaine mixed with exparel was injected into the dermis in the left lower quadrant. An incision was made with a 10 blade in the left lower quadrant. Dissection was done with cautery through the subcutaneous tissues and Luis's fascia down to the external oblique fascia. The external ring was identified and the external oblique fascia was opened sharply through the external ring. The cut fascia was grasped with hemostats the cord struct ures were identified and a Stas drain was placed around them. The ilioinguinal nerve was identified and cut. The cremasteric muscle was dissected away from the cord structures using both cautery and blunt dissection. A hernia sac was identified and removed from the cord structures using blunt dissection. The hernia sac was suture ligated and amputated. The remnant was pushed back into the peritoneum. An XL plug was placed into the indirect defect and secured with 3-0 proline. A hydrocele was then identified as I was trying to dissect what I thought was another hernia from the cord structures. The hydrocele was opened sharply and the fluid was removed. The edges were then everted and sutured together with chromic. The testicle was then gently placed back into the scrotum. A flat piece of mesh was then attached to the lacunar ligament using a 2-0 Prolene double armed suture. The mesh was secured laterally and medially with a 2-0 Prolene, with a running suture. The tails of the mesh were wrapped around the cord structures effectively cinching down the internal ring. Once the mesh was secured the tissues were irrigated with some normal saline. No bleeding was identified. The external oblique fascia was reapproximated using 2-0 Vicryl running suture. The Luis's fascia was reapproximated using interrupted 3-0 Vicryl. The dermis was reapproximated with a running 4-0 Vicryl. The skin was cleaned and dried and skin affix was applied. The patient was woken up and taken back to recovery in stable condition. There were no immediate complications. Sponge, instrument and needle counts were correct at the end of the case x2.
--- NOTE | 2021-11-02 06:33 | W.PM.DSUDISC ---
Discharge Plan Disposition Patient Disposition: HOME Condition: Good Discharge Details Reason For Visit: [facility] Attending Provider: Yvonne Garcia Primary Care Provider: Reese Lyons Home Meds and New Rx's Prescriptions: New oxycodone 5 mg Tablet 5 mg PO Q6H PRN (Reason: Pain) Qty: 14 RF: 0 Continued famotidine [Pepcid AC] 20 mg tablet 20 mg PO QHS Qty: 30 RF: 0 turmeric 400 mg capsule 400 mg PO DAILY RF: 0 calcium carbonate [Calcium 500] 500 mg calcium (1,250 mg) tablet 500 mg PO DAILY RF: 0 timolol maleate 0.5 % drops 1 drp ophthalmic (eye) BID RF: 0 omega-3 fatty acids [Fish Oil Concentrate] 1,000 mg capsule 1,000 mg PO DAILY RF: 0 aspirin [Adult Aspirin Regimen] 81 mg tablet,delayed release (DR/EC) 81 mg PO DAILY RF: 0 multivitamin Tablet 1 tab PO DAILY RF: 0 garlic 300 mg capsule 300 mg PO DAILY RF: 0 coenzyme Q10 [Co Q-10] 10 mg capsule 10 mg PO ONCE RF: 0 Discharge Instructions Instructions: Hydrocele (DC), Inguinal Hernia Repair (DC) Additional Instructions: Activity at Home after surgery: 1. Make sure you walk outside at least 4 times per day 2. You should be able to climb a flight of stairs 3. No driving while in pain or taking pain medications 4. No strenuous activity or heavy lifting for 4 weeks (open surgery) Diet, Nutrition, & wound healin. Avoid alcohol until after you are recovered from your surgery 2. Make sure to eat plenty of lean protein (meat, fish, eggs, cottage cheese, beans) 3. Eat a variety of fruits and vegetables. Eat plenty of high fiber foods to avoid constipation. 4. Drink plenty of liquids to stay hydrated and avoid constipation Pain Medications: 1. Tylenol 650mg every 6 hours as needed and Ibuprofen 600 mg every 6 hours as needed. You may alternate between the 2 medications every 3 hours 2. If a narcotic has been prescribed take as directed only for breakthrough pain For Constipation: 1. Take Milk of Magnesia or MiraLax as needed for constipation Other: 1. You may shower daily. Do not scrub the incisions 2. Do not soak the incisions for 1 week 3. You may alternate ice and heat as needed for pain and swelling Wound Care: 1. Keep the incisions clean and dry Please call our office if you develop: 1. Fevers >101.5 2. Nausea or Vomiting 3. Worsening pain 4. Redness and thick discharge from the wounds If after hours please call the Hospital at and ask to speak to the on-call surgeon Referrals: Yvonne Garcia MD [ [facility] STAFF PHYSICIAN] - 11/18/21 9:00 am Activity:: see above Remove Dressings/Wound Care:: Do Not Remove Shower/Bathe:: 24 hours Diet:: As Tolerated Discharge Orders Discharge Orders: Discharge Order (Routine); Ordered 11/02/21 Ordered By: Yvonne Garcia DS: Diagnosis Discharge Diagnosis (1) Left inguinal hernia: Status: Acute
[2021-11-02] MEDS: Gabapentin 300 MG CAP 600 MG PO (06:54)
[2021-11-02] MEDS: Lactated Ringers 1,000 ML 80 ML IV (06:55)
[2021-11-02] MEDS: Celecoxib 200 MG CAP PO (06:55)
[2021-11-02] MEDS: Acetaminophen 500 MG TAB 1000 MG PO (06:55)
--- NOTE | 2021-11-02 06:59 | W.ANESPRE ---
General Info Date of Service Date Performed: 11/02/21 Height: 5 ft 10 in Weight: 73.2 kg Body Mass Index (BMI): 23.1 Surgical Procedure: Operation Date: 11/02/21 07:40 Proposed Procedures Side Surgeon p Herniorrhaphy Inguinal w/Mesh Left Yvonne Garcia MD Meds Allergies and Home Medications Allergies Allergy/AdvReac Type Severity Reaction Status Date / Time No Known Allergies Allergy Verified 11/02/21 06:18 Home Medication Medication Instructions Recorded aspirin 81 mg tablet,delayed 81 mg PO DAILY 03/29/21 release calcium carbonate 500 mg calcium 500 mg PO DAILY 03/29/21 (1,250 mg) tablet coenzyme Q10 10 mg capsule 10 mg PO ONCE 03/29/21 garlic 300 mg capsule 300 mg PO DAILY 03/29/21 multivitamin 1 tab PO DAILY 03/29/21 omega-3 fatty acids 1,000 mg 1,000 mg PO DAILY 03/29/21 capsule timolol maleate 0.5 % eye drops 1 drp OPHTHALMIC (EYE) BID 03/29/21 turmeric 400 mg capsule 400 mg PO DAILY 03/29/21 famotidine 20 mg tablet 20 mg PO QHS #30 tab 09/09/21 Current Visit Medications: Current Medications Generic Name Dose Route Start Last Admin Trade Name Freq PRN Reason Stop Dose Admin Acetaminophen 1,000 mg 11/02/21 06:00 11/02/21 06:55 Acetaminophen 500 Mg Tab PO 11/02/21 16:00 1,000 mg PREOP ALYCIA Administration Celecoxib 200 mg 11/02/21 06:00 11/02/21 06:55 Celecoxib 200 Mg Cap PO 11/02/21 16:00 200 mg PREOP ALYCIA Administration Gabapentin 600 mg 11/02/21 06:00 11/02/21 06:54 Gabapentin 300 Mg Cap PO 11/02/21 16:00 600 mg PREOP ALYCIA Administration Ringer's Solution 1,000 mls @ 80 mls/hr 11/02/21 06:00 11/02/21 06:55 IV 11/04/21 23:59 80 mls/hr INFUSION ALYCIA Administration Cefazolin Sodium/Dextrose 2 gm in 50 mls @ 100 mls/hr 11/02/21 06:00 Ancef Duplex IVPB 11/02/21 16:00 PREOP ALYCIA Ondansetron HCl 4 mg/ Sodium 52 mls @ 200 mls/hr 11/02/21 06:34 Chloride IVPB Q6H PRN PRN IV Miscellaneous Supplies 1 each 11/02/21 06:00 Iv Access IV 11/04/21 23:59 DIRECTED ALYCIA Oxycodone HCl 5 mg 11/02/21 06:34 Oxycodone 5 Mg Tab PO Q3H PRN PRN Pain Sodium Chloride 0 ml 11/02/21 06:00 Normal Saline Flush 10 Ml Syr IV 11/04/21 23:59 PRN PRN Sodium Chloride 0 ml 11/02/21 06:00 Normal Saline 10 Ml Vial IJ 11/04/21 23:59 DIRECTED PRN Sterile Water 0 ml 11/02/21 06:00 Water,Injection,Sterile 10 Ml Vial IJ 11/04/21 23:59 DIRECTED PRN PFSH Active Problems Active Problems: Problem Status Onset Code Regular alcohol consumption Z78.9 Cardiomyopathy I42.9 Genital herpes A60.00 Abnormal EKG R94.31 Left inguinal hernia K40.90 Dyspepsia R10.13 Medical History Medical History Acute non-ST elevation myocardial infarction (NSTEMI) 10/2018-pt. has not f/u with cardiology Excessive drinking alcohol Gastro-esophageal reflux disease without esophagitis (02/08/17) Hyperlipidemia Hypertrophic cardiomyopathy Retinal detachment Tobacco abuse Vocal cord polyp Surgical History Surgical History History of biopsy Tonsil Biopsy 07/10/2013 History of cardiac cath 2017 History of eye surgery Retinal Surgery 2017 Tobacco Smoking/Tobacco Use Status: Current every day Tobacco Type: cigarettes Years smoked: 40 Alcohol Alcohol Intake: current Alcohol intake frequency: 3 or more drinks per day Substance Use Substance use: Never Substance use type: does not use Vital Signs and Lab Results Vital Signs Most Recent Vital Signs in EMR: Most Recent Vital Signs Temp Pulse Resp BP Pulse Ox 36.1 C L 75 16 127/80 98 11/02/21 06:21 11/02/21 06:21 11/02/21 06:21 11/02/21 06:21 11/02/21 06:21 Lab Results Blood Type / Crossmatch: No Data to Display Complete Blood Count: No Data to Display Complete Metabolic Panel: No Data to Display Liver Function Panel: No Data to Display Coagulation Panel: No Data to Display Cardiac Panel: No Data to Display Arterial Blood Gas: No Data to Display Venous Blood Gas: No Data to Display Pancreas Panel: No Data to Display Thyroid Panel: No Data to Display Infectious Disease: Coronavirus (COVID-19)(PCR) Negative (Negative) 10/31/21 09:33 10/31/21 Coronavirus 2019 Source Nasal/Nares 10/31/21 09:33 10/31/21 Blood Cultures: No Data to Display Toxicology Panel: No Data to Display Imaging and Studies Imaging and Studies Study information below may be from another EMR and interpreted by another provider. Please see original notes in EMR for more complete details. EKG Summary: Conclusion Sinus rhythm...normal P axis, V-rate 50- 99 LVH with repolarization abnormalities Echocardiogram Summary: *STUDY CONCLUSIONS* Summary: 1. Left ventricle: The cavity size was normal. Wall thickness was increased in a pattern of mild LVH. Systolic function was normal. The estimated ejection fraction was 55-60%. Wall motion was normal; there were no regional wall motion abnormalities. 2. Right ventricle: The cavity size was normal. Systolic function was normal. 3. Pulmonary arteries: Pulmonary systolic pressure was increased, in the range of 40mm Hg to 45mm Hg. 4. Inferior vena cava: The vessel was patent and normal in size. The respirophasic diameter changes were in the normal range (greater than or equal to 50%), consistent with normal central venous pressure. Anesthesia Assessment and Plan Anesthesia History Personal History: No History of Anesthesia Complications Family History: No Family History of Anesthesia Complications Exercise Tolerance Exercise Tolerance: Metabolic Equivalents>4 Pertinent Negatives Pertinent Negatives: No Symptoms of GERD Cardiac & Pulmonary Exam Cardiac Exam: Normal S1/S2 Heart Sounds Pulmonary Exam: Clear Bilateral Breath Sounds Implantable Cardiac Device Does patient have a Pacemaker or an ICD?: No Airway Exam Known Difficult Airway: No Mallampati Class: 2 Mouth Opening: Normal (> 3cm) Thyromental Distance: Greater than 3 cm Neck Range of Motion: Full ROM Neck Circumference: Normal Teeth Condition: Normal Dentition Airway Comments: reports sharp tooth upper right, area of 16 ASA Classification ASA Score: ASA 2 Emergency Case?: No NPO Status NPO Status: NPO Clears >2 hours, Solids >8 hours Anesthesia Plan Resuscitation Status: Full Code Anesthesia Technique: General Anesthesia Airway Planned: LMA Pain Management: Surgeon and patient request nerve block Monitors Used: Standard Monitors
[2021-11-02] MEDS: ceFAZolin 2 GM/50 ML BAG IVPB (07:32)
--- NOTE | 2021-11-02 07:55 | W.ANESNERVE ---
Nerve Block Single Injection Procedure Date and Time Date Performed: 11/02/21 Procedure Start: 07:45 Location Where Procedure Performed Procedure Location: Operating Room Procedure Stop: 07:50 Reason Performed: Postoperative Analgesia Requesting Provider: Yvonne Garcia Timeout Performed Timeout Performed: Yes Monitoring Used ECG, Blood Pressure, SpO2 and ETCO2 Sterility Sterility: Hand Hygiene, Surgical Cap, Surgical Mask, Sterile Gloves, Eye Protection and Chlorhexidine Sedation Given During Procedure Sedation Given (Indicate Dose Given): No Sedation given Patient Mental Status Patient Mental Status: Performed under general anesthesia Nerve Block 1st Nerve Block: Laterality: Left Block Type: TAP Unilateral Needle / Catheter Used: 100mm SonoPlex II Local Anesthetic Bolus (Indicate Dose Given): Injected in 3-5ml increments after negative blood aspiration, Bupivacaine 0.25% Dose:: 10 ml and Exparel Dose:: 10 ml Additives (Indicate Dose Given): None Ultrasound: Sterile probe cover and gel used Ultrasound Image Saved?: Yes Nerve Stimulator: Not Used Paresthesia: None Procedure Tolerated: No Complications Procedure Outcome: Successful Performed By: Duncan Deleon
[2021-11-02] MEDS: Bupivacaine 0.5% Pres-Free 30 ML VIAL (08:33)
[2021-11-02] MEDS: Ketorolac 15 MG/ML VIAL IVP (09:33)
--- NOTE | 2021-11-02 11:41 | W.ANESPOSTOP ---
Postoperative Evaluation Date, Time and Location Date Performed: 11/02/21 Time Performed: 09:42 Patient Location: PACU Vital Signs Most Recent Imported Vital Signs: Most Recent Vital Signs Temp Pulse Resp BP Pulse Ox 36.3 C L 58 L 16 119/80 99 11/02/21 10:41 11/02/21 10:41 11/02/21 10:41 11/02/21 10:41 11/02/21 10:41 Pain Score Most Recent Pain Score: Most Recent Pain Score Pain Level 2 11/02/21 10:41 Assessment Mental Status: Awake (Alert & Oriented to Patient Baseline) Airway and Respiratory Function: Patent airway with normal (patient baseline) respiratory exam Cardiovascular Function: Hemodynamically Stable Hydration Status: Adequately Hydrated Nausea & Vomiting: No Nausea or Vomiting Pain: Pt. Denies Any Pain Peripheral Nerve Block: Patient did not receive a nerve block Postoperative Comments:: Seen earlier in PACU
== END 2021-11-02 11:41 | disposition home or self-care (01) ==
PROVIDERS: PCP Physician Assistant; Visit Provider Surgery
PROC: (CPT 49505; principal; 2021-11-02 07:30)
DX: K40.90 Unilateral inguinal hernia, without obstruction or gangrene, not specified as recurrent (principal); I42.9 Cardiomyopathy, unspecified
CPT/HCPCS: 49505; 76942; C1781; J0690; J1100; J1885; J2250; J2405; J2704

== ENCOUNTER 2022-03-21 18:04 | Outpatient (REF) | payer MEDICAID, SELFPAY ==
[2022-03-21 22:36] LABS: Anion Gap 10.6 mmol/L (3-11); BUN 6 mg/dL (7-18); CO2 27.4 mmol/L (21.0-32.0); CREATININE 0.8 mg/dL (0.70-1.30); Calcium 8.4 mg/dL (8.5-10.1); Calculated LDL 125 mg/dL (<100); Chloride 101 mmol/L (98-107); Cholesterol 226 mg/dL (<200); Glucose 91 mg/dL (74-106); HDL Cholesterol 59 mg/dL (40-60); Potassium 3.9 mmol/L (3.5-5.1); Sodium 139 mmol/L (136-145); Triglyceride 210 mg/dL (<150)
[2022-03-22 18:04] LABS: PSA, Diagnostic 0.6 ng/mL (<=3.5)
== END 2022-03-21 18:05 | disposition home or self-care (01) ==
LOC: NCHCN 18:04
PROVIDERS: PCP Physician Assistant; Visit Provider Physician Assistant
DX: E78.5 Hyperlipidemia, unspecified (principal); Z12.5 Encounter for screening for malignant neoplasm of prostate
CPT/HCPCS: 80048; 80061; 84153

== ENCOUNTER 2022-03-22 16:27 | Outpatient (REF) | payer MEDICAID, SELFPAY ==
[2022-03-22 21:13] LABS: ALT 27 U/L (16-63); AST 27 U/L (15-37); Albumin 3.6 g/dL (3.4-5.0); Alkaline Phosphatase 60 U/L (46-116); Bilirubin, Direct 0.1 mg/dL (0.0-0.2); Bilirubin, Total 0.3 mg/dL (0.2-1.0); Total Protein 6.9 g/dL (6.4-8.2)
[2022-03-23 20:45] LABS: PSA, Diagnostic 0.5 ng/mL (<=3.5)
== END 2022-03-22 16:28 | disposition home or self-care (01) ==
LOC: NCHCN 16:27
PROVIDERS: PCP Physician Assistant; Visit Provider Physician Assistant
DX: F10.20 Alcohol dependence, uncomplicated (principal); Z12.5 Encounter for screening for malignant neoplasm of prostate
CPT/HCPCS: 80076; 84153

== ENCOUNTER → 2022-05-26 01:04 | Outpatient (CLI) | payer MEDICAID, SELFPAY ==
--- NOTE | 2022-05-26 08:30 | DI.CTLCSR_ITS ---
Exam(s) CT CHEST LUNG CANCER SCREEN EXAM: CT CHEST LUNG CANCER SCREEN CLINICAL HISTORY: SCREENING FOR LUNG CA, TOBACCO ABUSE, F17.200 TECHNIQUE: Imaging Protocol: Axial computed tomography images with coronal and sagittal reformatted images were created and reviewed. Low dose screening protocol. COMPARISON: CR XR PORTABLE CHEST AP from 10/03/2018 FINDINGS: Tracheobronchial tree: No bronchiectasis or mucus plugging.. Mediastinum and Alisha: No dominant adenopathy or fluid collection. Pulmonary parenchyma: Focal scarring or atelectasis medial right middle lobe. No consolidation or do minant measurable mass. Mild emphysematous changes upper lobes. Lung Nodules: 4 millimeter nodule anterior left upper lobe. 4 millimeter perifissural nodule right m iddle lobe. 4 millimeter nodule right lower lobe. Other scattered 2 millimeter nodules are seen gonzalez aterally. Pleura: No effusion. No pneumothorax. Heart: The heart is not dilated. Mild coronary artery calcifications are seen. Aorta: Thoracic aorta non-dilated.Mild atherosclerotic changes. Upper abdomen: Cyst upper pole left kidney. Bones: Unremarkable for age. Soft Tissues: Unremarkable. IMPRESSION: Scattered small bilateral pulmonary nodules, largest measuring 4 millimeters.. Lung RADS Cat 2 - Benign Appearance / Behavior: Nodules with a very low likelihood of becoming a clin ically active cancer due to size or lack of growth Lung-RADS 1.0 CATEGORIES: Category 0 - Prior chest CT exam(s) being located for comparison. Category 1 - Annual screening in 12 months. No nodules or definitely benign nodules. Category 2 - Annual screening in 12 months. Benign appearance. Nodules with low likelihood of becomin g active cancer. Category 3 - 6-month follow-up. Probably benign. Short-term follow-up suggested. Nodules with low lik elihood of becoming active cancer. Category 4A - 3-month follow-up and CT/PET if >8 mm in size. Suspicious finding. Findings which requi re additional testing. Category 4B - Findings which require additional testing and tissue sampling. Category 4X - Category 3 or 4 nodules with additional features or imaging findings that increases the suspicion of malignancy. Modifier S- Potentially clinically significant findings (non lung cancer) RADIATION DOSE DELIVERED: 80.96mGy.cm Total DLP 1.84mGy CTDIvol DATA REPOSITORY: All CT scans at this facility are submitted to the National Radiology Data Registry (NRDR) Dose Index Registry (DIR) with the [employer] (ACR). RADIATION OPTIMIZATION: All CT scans at this facility use at least one of these dose optimization te chniques: automated exposure control; mA and/or kV adjustment per patient size (includes targeted exa ms where dose is matched to clinical indication); or iterative reconstruction.
== END ==
PROVIDERS: PCP Physician Assistant; Visit Provider Physician Assistant
DX: Z12.2 Encounter for screening for malignant neoplasm of respiratory organs (principal); R91.8 Other nonspecific abnormal finding of lung field; F17.200 Nicotine dependence, unspecified, uncomplicated
CPT/HCPCS: 71271

== ENCOUNTER 2023-02-08 16:27 | Outpatient (CLI) | payer MEDICAID, SELFPAY ==
--- NOTE | 2023-02-08 | DI.RAD_ITS ---
Exam(s) XR THUMB LT EXAM: XR THUMB LT CLINICAL HISTORY: LEFT THUMB PAIN M79.645 ? ARTHRITIS. TECHNIQUE: 2D digital imaging was performed. COMPARISON: CR,XR XR THUMB RT from 02/08/2023 FINDINGS: 3 views No evidence of fracture or dislocation. There are moderate degenerative changes in the 1st carpometa carpal joint. Similar to the opposite side IMPRESSION: Degenerative changes at the 1st carpometacarpal joint. DATA REPOSITORY: RADIATION DOSE DELIVERED:
--- NOTE | 2023-02-08 | DI.RAD_ITS ---
Exam(s) XR THUMB RT EXAM: XR THUMB RT CLINICAL HISTORY: RT THUMB PAIN M79.644. TECHNIQUE: 2D digital imaging was performed. COMPARISON: No exams were available for comparison FINDINGS: 3 views No evidence of acute fracture nor dislocation. There are degenerative changes in the 1st carpometaca rpal joint. Mild joint space narrowing and degenerative subarticular cysts noted. Cysts are on the side of the base of the thumb metacarpal. IMPRESSION: Degenerative changes at the 1st carpometacarpal joint. DATA REPOSITORY: RADIATION DOSE DELIVERED:
--- NOTE | 2023-02-08 17:14 | DI.VRAD_ITS ---
PROCEDURE INFORMATION: Exam: XR Left Finger(s) Exam date and time: 02/08/2023 4:55 PM Age: 57 years old Clinical indication: Finger(s); Patient HX: Left thumb pain; ? Arthritis TECHNIQUE: Imaging protocol: Radiologic exam of the left fingers. Views: Minimum 2 views. COMPARISON: No relevant prior studies available. FINDINGS: Bones/joints: There are no acute displaced fractures or subluxations. There are a few tiny periarticular osseous erosions around the 1st carpometacarpal joint. There is also mild periarticular sclerosis around this joint and minimal periarticular spurring. The 1st metacarpophalangeal joint and 1st interphalangeal joint appear normal. Overall osseous mineralization is normal. Soft tissues: Normal. IMPRESSION: Mild degenerative and erosive changes at the 1st carpometacarpal joint, could represent mild erosive osteoarthritis. Recommend clinical correlation. Dictated and Authenticated by: Aubrey York MD. Ordering:EMILIANO Harris MD
--- NOTE | 2023-02-08 17:17 | DI.VRAD_ITS ---
PROCEDURE INFORMATION: Exam: XR Right Finger(s) Exam date and time: 02/08/2023 4:54 PM Age: 57 years old Clinical indication: Finger(s); Right; Patient HX: R thumb pain; ? Arthritis TECHNIQUE: Imaging protocol: Radiologic exam of the right fingers. Views: Minimum 2 views. COMPARISON: No relevant prior studies available. FINDINGS: Bones/joints: There is mild to moderate asymmetric joint space narrowing at the 1st carpometacarpal joint with mild periarticular sclerosis. There are also a few tiny osseous erosions around the 1st carpometacarpal joint. The 1st metacarpophalangeal joint and 1st interphalangeal joint appear normal. There are no acute displaced fractures or subluxations. Overall osseous mineralization is normal. Soft tissues: Normal. IMPRESSION: Mild to moderate degenerative and erosive osseous changes around the 1st carpometacarpal joint could represent mild to moderate erosive osteoarthritis. Recommend clinical correlation. Dictated and Authenticated by: Aubrey York MD. Ordering:EMILIANO Harris MD
== END 2023-02-08 16:47 ==
LOC: DI 16:27
PROVIDERS: PCP Physician Assistant; Visit Provider Physician Assistant Medical
DX: M79.644 Pain in right finger(s) (principal); M79.645 Pain in left finger(s); M18.0 Bilateral primary osteoarthritis of first carpometacarpal joints
CPT/HCPCS: 73140

== ENCOUNTER 2023-05-29 02:30 | Outpatient (CLI) | payer MEDICAID, SELFPAY ==
--- NOTE | 2023-05-29 11:09 | DI.CTLCSR_ITS ---
Exam(s) CT CHEST LUNG CANCER SCREEN EXAM: CT CHEST LUNG CANCER SCREEN CLINICAL HISTORY: SCREENING FOR LUNG CA, SMOKER, F17.210. TECHNIQUE: Imaging Protocol: Low Dose Technique CONTRAST MATERIAL: None COMPARISON: CT CT CHEST LUNG CANCER SCREEN from 05/26/2022 FINDINGS: CHEST: LUNGS: There are no new ominous pulmonary nodules. The previously described 4 millimeter left upper l obe nodule is unchanged. Other smaller nodules also unchanged. No new ominous nodules. No new conf luent infiltrates no pleural effusions. MEDIASTINUM: There is no obvious hilar nor mediastinal adenopathy. CARDIAC: Heart size is normal. There is no pericardial effusion.Caliber of the thoracic aorta is wit hin normal limits. OTHER: Bilateral gynecomastia again noted. OSSEOUS: No significant osseous lesions.Healed fractures posterior left 7th through 10th ribs.. No a cute fractures evident. IMPRESSION: 1. Stable benign-appearing lung nodules. No new ominous lung nodules nor pleural effusions nor obvio us intrathoracic adenopathy. 2. Multiple healed left-sided rib fractures now evident. 3. Lung RADS Cat 2 - Benign Appearance / Behavior: Nodules with a very low likelihood of becoming a c linically active cancer due to size or lack of growth Lung-RADS 1.0 CATEGORIES: Category 0 - Prior chest CT exam(s) being located for comparison. Category 1 - Annual screening in 12 months. No nodules or definitely benign nodules. Category 2 - Annual screening in 12 months. Benign appearance. Nodules with low likelihood of becomin g active cancer. Category 3 - 6-month follow-up. Probably benign. Short-term follow-up suggested. Nodules with low lik elihood of becoming active cancer. Category 4A - 3-month follow-up and CT/PET if >8 mm in size. Suspicious finding. Findings which requi re additional testing. Category 4B - Findings which require additional testing and tissue sampling. Category 4X - Category 3 or 4 nodules with additional features or imaging findings that increases the suspicion of malignancy. Modifier S- Potentially clinically significant findings (non lung cancer) RADIATION DOSE DELIVERED: Total DLP DATA REPOSITORY: All CT scans at this facility are submitted to the National Radiology Data Registry (NRDR) Dose Index Registry (DIR) with the [employer] (ACR). RADIATION OPTIMIZATION: All CT scans at this facility use at least one of these dose optimization te chniques: automated exposure control; mA and/or kV adjustment per patient size (includes targeted exa ms where dose is matched to clinical indication); or iterative reconstruction.
== END 2023-05-29 02:50 ==
LOC: DI 02:30
PROVIDERS: PCP Physician Assistant; Visit Provider Physician Assistant
DX: Z12.2 Encounter for screening for malignant neoplasm of respiratory organs (principal); F17.210 Nicotine dependence, cigarettes, uncomplicated; R91.1 Solitary pulmonary nodule
CPT/HCPCS: 71271

== ENCOUNTER 2023-06-08 09:48 | Outpatient (CLI) | payer MEDICAID, SELFPAY ==
--- NOTE | 2023-06-08 11:07 | DI.RAD_ITS ---
Exam(s) XR WRIST RT LIMITED EXAM: XR WRIST RT LIMITED CLINICAL HISTORY: R wrist pain. TECHNIQUE: 2D digital imaging was performed. COMPARISON: CR,XR XR THUMB LT from 02/08/2023 CR,XR XR THUMB RT from 02/08/2023 FINDINGS: Two views. No evidence of fracture or carpal dislocation. No significant ulnar variance. Scapholunate distance normal. Some mild degenerative changes noted at the level of the 1st carpometacarpal joint. Also includes a small degenerative subarticular cyst at the base of the thumb metacarpal. IMPRESSION: Some degenerative change at the 1st carpometacarpal joint. No other focal osseous findings in the wr ist.. DATA REPOSITORY: RADIATION DOSE DELIVERED:
--- NOTE | 2023-06-08 11:08 | DI.RAD_ITS ---
Exam(s) XR WRIST LT LIMITED EXAM: XR WRIST LT LIMITED CLINICAL HISTORY: eval L wrist pain. TECHNIQUE: 2D digital imaging was performed. COMPARISON: CR XR WRIST RT LIMITED from 06/08/2023 FINDINGS: Two views. No evidence of fracture or dislocation nor significant ulnar variance. Scaphoid and scapholunate dis tance normal. Small benign cyst at the mid capitate level noted. There are mild degenerative change s in the 1st carpometacarpal joint evident. IMPRESSION: As above. DATA REPOSITORY: RADIATION DOSE DELIVERED:
== END 2023-06-08 09:49 | disposition home or self-care (01) ==
LOC: DIORS 09:48
PROVIDERS: PCP Physician Assistant; Referring Provider Physician Assistant; Visit Provider Student in an Organized Health Care Education/Training Program
DX: M18.11 Unilateral primary osteoarthritis of first carpometacarpal joint, right hand (principal); M25.532 Pain in left wrist
CPT/HCPCS: 73100

== ENCOUNTER 2023-06-08 10:54 | Outpatient (REF) | payer MEDICAID, SELFPAY ==
[2023-06-08 15:55] LABS: HCT 47.9 % (40.0-50.0); HGB 16.1 g/dL (13.5-17.5); MCH 31.8 pg (27.0-33.0); MCHC 33.6 % (32.0-36.0); MCV 95 fL (80-95); MPV 11.5 fL (8.0-11.0); Platelet Count 192 10^3/uL (130-400); RBC 5.07 10^6/uL (4.36-5.78); RDW 12.5 % (11.8-14.1); RDW-SD 43.5 fL; WBC 10.65 10^3/uL (4.4-10.8)
[2023-06-08 16:24] LABS: ALT 26 U/L (16-63); AST 29 U/L (15-37); Albumin 3.7 g/dL (3.4-5.0); Alkaline Phosphatase 53 U/L (46-116); Anion Gap 9.2 mmol/L (3-11); BUN 12 mg/dL (7-18); Bilirubin, Total 0.5 mg/dL (0.2-1.0); CO2 28.8 mmol/L (21.0-32.0); CREATININE 0.9 mg/dL (0.70-1.30); Calcium 9.2 mg/dL (8.5-10.1); Calculated LDL 136 mg/dL (<100); Chloride 104 mmol/L (98-107); Cholesterol 222 mg/dL (<200); Glucose 100 mg/dL (74-106); HDL Cholesterol 59 mg/dL (40-60); Potassium 4.2 mmol/L (3.5-5.1); Sodium 142 mmol/L (136-145); Total Protein 7.2 g/dL (6.4-8.2); Triglyceride 138 mg/dL (<150)
== END 2023-06-08 10:55 | disposition home or self-care (01) ==
LOC: NCHCN 10:54
PROVIDERS: PCP Physician Assistant; Visit Provider Physician Assistant
DX: E78.5 Hyperlipidemia, unspecified (principal)
CPT/HCPCS: 80053; 80061; 85027

== ENCOUNTER 2023-06-20 08:52 | Day surgery (SDC) | payer MEDICAID, SELFPAY ==
[2023-06-20] VITALS (8 sets, daily range): BP systolic 75–135; BP diastolic 52–92; PULSE 49–61; RESP 12–19; TEMP 36.2–36.7; O2SAT 95–99; BMI 23.8
--- NOTE | 2023-06-20 09:19 | ANES.PREOP_ITS ---
General Info Date of Service Date Performed: 06/20/23 Height: 5 ft 10 in Weight: 75.2 kg Body Mass Index (BMI): 23.8 Surgical Procedure: Operation Date: 06/20/23 09:55 Proposed Procedure Side Surgeon p Herniorrhaphy Inguinal w/Mesh Right Yvonne Garcia MD Meds Allergies and Home Medications Allergies Allergy/AdvReac Type Severity Reaction Status Date / Time No Known Allergies Allergy Verified 06/20/23 09:13 Home Medication Medication Instructions Recorded aspirin 81 mg tablet,delayed 81 mg PO DAILY 03/29/21 release (Adult Aspirin Regimen) calcium carbonate 500 mg calcium 500 mg PO DAILY 03/29/21 (1,250 mg) tablet (Calcium 500) coenzyme Q10 10 mg capsule (Co 10 mg PO ONCE 03/29/21 Q-10) garlic 300 mg capsule 300 mg PO DAILY 03/29/21 multivitamin 1 tab PO DAILY 03/29/21 omega-3 fatty acids 1,000 mg 1,000 mg PO DAILY 03/29/21 capsule (Fish Oil Concentrate) timolol maleate 0.5 % eye drops 1 drp ophthalmic (eye) BID 03/29/21 turmeric 400 mg capsule 400 mg PO DAILY 03/29/21 albuterol sulfate 90 mcg/actuation 2 puff inhalation Q6H PRN 06/22/22 aerosol inhaler (ProAir HFA) umeclidinium 62.5 mcg/actuation 1 inh inhalation DAILY 06/22/22 blister powder for inhalation (Incruse Ellipta) nicotine (polacrilex) 4 mg gum 4 mg buccal Q2H 10/23/22 omeprazole 20 mg capsule,delayed 20 mg PO DAILY 10/23/22 release diclofenac sodium 1 % topical gel 2 g topical QID #100 grams 06/12/23 Current Visit Medications: Current Medications Generic Name Dose Route Start Last Admin Trade Name Freq PRN Reason Stop Dose Admin Ringer's Solution 1,000 mls @ 80 mls/hr 06/20/23 06:00 IV 06/20/23 23:59 INFUSION ALYCIA Cefazolin Sodium/Dextrose 2 gm in 50 mls @ 100 mls/hr 06/20/23 06:00 Ancef Duplex IVPB 06/20/23 23:59 PREOP ALYCIA IV Miscellaneous Supplies 1 each 06/20/23 06:00 Iv Access IV 06/20/23 23:59 DIRECTED ALYCIA Sodium Chloride 0 ml 06/20/23 06:00 Normal Saline Flush 10 Ml Syr IV 06/20/23 23:59 PRN PRN Sodium Chloride 0 ml 06/20/23 06:00 Normal Saline 10 Ml Vial IJ 06/20/23 23:59 DIRECTED PRN Sterile Water 0 ml 06/20/23 06:00 Water,Injection,Sterile 10 Ml Vial IJ 06/20/23 23:59 DIRECTED PRN PFSH Active Problems Active Problems: Problem Status Onset Code Tobacco abuse Z72.0 Abnormal EKG R94.31 Left inguinal hernia K40.90 Dyspepsia R10.13 Genital herpes A60.00 Cardiomyopathy I42.9 Regular alcohol consumption Z78.9 GERD (gastroesophageal reflux disease) K21.9 COPD (chronic obstructive pulmonary disease) J44.9 Alcohol dependence F10.20 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 has not f/u with cardiology Pt. states it was never verified Chronic hoarseness Excessive drinking alcohol Gastro-esophageal reflux disease without esophagitis (02/08/17) Hyperlipidemia Hypertrophic cardiomyopathy Retinal detachment Vocal cord polyp Surgical History Surgical History History of biopsy Tonsil Biopsy 07/10/2013 History of cardiac cath 2017 History of eye surgery Retinal Surgery 2018 S/P inguinal hernia repair using synthetic patch (~11/02/21) left Tobacco Smoking/Tobacco Use Status: Current every day Tobacco Type: cigarettes Years smoked: 40 Alcohol Alcohol Intake: current Alcohol intake frequency: a few times a week Alcohol type: beer Substance Use Substance use: Never Substance use type: does not use Vital Signs and Lab Results Vital Signs Most Recent Vital Signs in EMR: Most Recent Vital Signs Temp Pulse Resp BP Pulse Ox 36.7 C 59 L 19 113/73 97 06/20/23 09:05 06/20/23 09:05 08/16/23 09:05 06/20/23 09:05 06/20/23 09:05 Lab Results Blood Type / Crossmatch: No Data to Display Complete Blood Count: White Blood Count 10.65 10^3/uL (4.4-10.8) 06/08/23 09:50 Red Blood Count 5.07 10^6/uL (4.36-5.78) 06/08/23 09:50 Hemoglobin 16.1 g/dL (13.5-17.5) 06/08/23 09:50 Hematocrit 47.9 % (40.0-50.0) 06/08/23 09:50 Platelet Count 192 10^3/uL (130-400) 06/08/23 09:50 Complete Metabolic Panel: Sodium 142 mmol/L (136-145) 06/08/23 09:50 Potassium 4.2 mmol/L (3.5-5.1) 06/08/23 09:50 Chloride 104 mmol/L (98-107) 06/08/23 09:50 Carbon Dioxide 28.8 mmol/L (21.0-32.0) 06/08/23 09:50 BUN 12 mg/dL (7-18) 06/08/23 09:50 Creatinine 0.9 mg/dL (0.70-1.30) 06/08/23 09:50 Est GFR (CKD-EPI 2020) 99.00 (mL/min/1.73m2) 06/08/23 09:50 Calcium 9.2 mg/dL (8.5-10.1) 06/08/23 09:50 Albumin 3.7 g/dL (3.4-5.0) 06/08/23 09:50 Glucose 100 mg/dL (74-106) 06/08/23 09:50 Liver Function Panel: Alanine Aminotransferase (ALT/SGPT) 26 U/L (16-63) 06/08/23 09: 50 Aspartate Amino Transf (AST/SGOT) 29 U/L (15-37) 06/08/23 09:50 Coagulation Panel: No Data to Display Cardiac Panel: No Data to Display Arterial Blood Gas: No Data to Display Venous Blood Gas: No Data to Display Pancreas Panel: No Data to Display Thyroid Panel: No Data to Display Infectious Disease: No Data to Display Blood Cultures: No Data to Display Toxicology Panel: No Data to Display Imaging and Studies Imaging and Studies Study information below may be from another EMR and interpreted by another provider. Please see original notes in EMR for more complete details. EKG Summary: 10/13/21 Conclusion Sinus rhythm...normal P axis, V-rate 50- 99 LVH with repolarization abnormalities Echocardiogram Summary: *STUDY CONCLUSIONS* 10/03/18 Summary: 1. Left ventricle: The cavity size was normal. Wall thickness was increased in a pattern of mild LVH. Systolic function was normal. The estimated ejection fraction was 55-60%. Wall motion was normal; there were no regional wall motion abnormalities. 2. Right ventricle: The cavity size was normal. Systolic function was normal. 3. Pulmonary arteries: Pulmonary systolic pressure was increased, in the range of 40mm Hg to 45mm Hg. 4. Inferior vena cava: The vessel was patent and normal in size. The respirophasic diameter changes were in the normal range (greater than or equal to 50%), consistent with normal central venous pressure. Anesthesia Assessment and Plan Anesthesia History Personal History: No History of Anesthesia Complications Family History: No Family History of Anesthesia Complications Exercise Tolerance Exercise Tolerance: Metabolic Equivalents>4 Pertinent Negatives Pertinent Negatives: No Major Cardiovascular Symptoms or Complaints, No Major Pulmonary Symptoms or Complaints and No History of CVA/TIA Cardiac & Pulmonary Exam Cardiac Exam: Normal S1/S2 Heart Sounds Pulmonary Exam: Clear Bilateral Breath Sounds Implantable Cardiac Device Does patient have a Pacemaker or an ICD?: No Airway Exam Known Difficult Airway: No Mallampati Class: 2 Mouth Opening: Normal (> 3cm) Thyromental Distance: Greater than 3 cm Neck Range of Motion: Full ROM Neck Circumference: Normal Teeth Condition: Normal Dentition and Other (some missing teeth, #22 broken at base) Airway Comments: reports sharp tooth upper right, area of 16 ASA Classification ASA Score: ASA 2 Emergency Case?: No NPO Status NPO Status: NPO Clears >2 hours, Solids >8 hours Anesthesia Plan Resuscitation Status: Full Code Anesthesia Technique: General Anesthesia Airway Planned: LMA Pain Management: Surgeon and patient request nerve block Monitors Used: Standard Monitors
[2023-06-20] MEDS: Lactated Ringers 1,000 ML 80 ML IV (09:26)
[2023-06-20] MEDS: ceFAZolin 2 GM/50 ML BAG IVPB (09:53)
--- NOTE | 2023-06-20 10:10 | ANES.NERVE_ITS ---
Nerve Block Single Injection Procedure Date and Time Date Performed: 06/20/23 Procedure Start: 09:56 Location Where Procedure Performed Procedure Location: Operating Room (OR1) Procedure Stop: 10:01 Reason Performed: Postoperative Analgesia Requesting Provider: Yvonne Garcia Timeout Performed Timeout Performed: Yes Monitoring Used ECG, Blood Pressure, SpO2, ETCO2 and See EMR for corresponding vital signs Sterility Sterility: Hand Hygiene, Surgical Cap, Surgical Mask, Sterile Gloves, Eye Protection and Chlorhexidine Sedation Given During Procedure Sedation Given (Indicate Dose Given): Other: Medication/Route/Dose:: See anesth esia record Patient Mental Status Patient Mental Status: Performed under general anesthesia Nerve Block 1st Nerve Block: Laterality: Right Block Type: TAP Unilateral Ultrasound Image Saved?: Yes Needle / Catheter Used: 100mm SonoPlex II Local Anesthetic Bolus (Indicate Dose Given): None, Injected in 3-5ml increments after negative blood aspiration, Bupivacaine 0.25% Dose:: 0.25%/20cc (50mg) and Exparel Dose:: 10cc (133mg) Additives (Indicate Dose Given): None Ultrasound: Sterile probe cover and gel used Nerve Stimulator: Not Used Paresthesia: None Procedure Tolerated: No Complications and Patient tolerated well Procedure Outcome: Successful Performed By: Sukh Page
[2023-06-20] MEDS: Bupivacaine 0.25% Pres-Free 30 ML VIAL (10:37)
--- NOTE | 2023-06-20 11:09 | PGE_ITS ---
Date of Service Date of service: 06/20/23 Time of Service: 09:45 Assessment and Plan Assessment and plan (1) Right inguinal hernia: Status: Acute Assessment and plan: Sacha is a pleasant 57-year-old gentleman with a past medical history significant for cardiomyopathy, COPD and heart attack back in 2018 who has developed a right inguinal hernia.? I repaired a left inguinal hernia back in 2020.? He had no issues during surgery and has healed very well.? He had no complications after the surgery.? We reviewed the pathophysiology of hernias again as well as the complications.? I used a pamphlet to go over things with him.? He has a good understanding of the procedure itself as well as the complication risk.? Risks, benefits and complications have been reviewed. Compli cations include but are not limited to bleeding, pain, infection, injury to underlying structures like bowel, recurrence, hematoma, seroma, chronic pain and adverse reaction to the medication.? Questions were entertained and answered to their satisfaction and they wished to proceed. No guarantees were given or implied. Subjective Subjective Interval history since last seen: Sacha was seen in same-day surgery prior to his right inguinal hernia repair. He was doing well. He had no new symptoms. He denies chest pain or shortness of breath We reviewed the procedure again as well as the risks, benefits and complications. Sacha did not have any questions and wished to proceed. Objective Last Vital Signs Temp 97.5 F L 06/20/23 11:03 Pulse 61 06/20/23 11:03 Resp 12 06/20/23 11:03 BP 86/64 L 06/20/23 11:03 Pulse Ox 98 06/20/23 11:03 Time Spent with Patient Time Spent with Patient: <25 minutes Time was spent: counseling the patient
--- NOTE | 2023-06-20 11:11 | ROE_ITS ---
Date of service: 06/20/23 Time of Service: 11:11 Operative Note Operative Note DATE OF PROCEDURE: 06/20/23 PRE-OP DIAGNOSIS: Right inguinal hernia POST-OP DIAGNOSIS: other (Right direct and indirect inguinal hernia) PROCEDURE: Right inguinal hernia repair with mesh SURGEON: Yvonne Garcia NAPHTHALENE STILL OPERATOR: Aster Hargrove ANESTHESIA TYPE: Local By Surgeon, General:No Airway and Primary Nerve Block (TAP block) Refer to Anesthesia Record ESTIMATED BLOOD LOSS: 25 PATHOLOGY: none sent COMPLICATIONS: None Patient was transported to: PACU Patient's condition: stable Implants: PerFix Light Plug: REF- [id number] LOT- [id number] - 2028-08-[birth year] Indications: Sacha is a pleasant 57-year-old gentleman with a past medical history significant for cardiomyopathy, COPD and heart attack back in 2017 who has developed a right inguinal hernia.? I repaired a left inguinal hernia back in 2020.? He had no issues during surgery and has healed very well.? He had no complications after the surgery.? We reviewed the pathophysiology of hernias again as well as the complications.? I used a pamphlet to go over things with him.? He has a good understanding of the procedure itself as well as the complication risk.? Risks, benefits and complications have been reviewed. Complications include but are not limited to bleeding, pain, infection, injury to underlying structures like bowel, recurrence, hematoma, seroma, chronic pain and adverse reaction to the medication.? Questions were entertained and answered to their satisfaction and they wished to proceed. No guarantees were given or implied. Findings: Large indirect hernia and moderate sized direct hernia Procedure Description: After informed consent was obtained the patient was taken to the operating room and placed in a supine position. Monitors and SCDs were applied and a timeout was done. The patient's name, date of , procedure type, procedure site, allergies to medications, preoperative antibiotic, and DVT prophylaxis were all reviewed. Fire risk was assessed. Next anesthesia did a tap block on the right side under ultrasound guidance. Please see their separate dictation. Once anesthesia was done the abdomen was prepped and draped in a sterile surgical fashion. 0.5% Marcaine was injected into the dermis in the right lower quadrant. An incision was made with a 10 blade in the right lower quadrant. Dissection was done with cautery through the subcutaneous tissues and Luis's fascia down to the external oblique fascia. The external ring was identified and the external oblique fascia was opened sharply through the external ring. The cut fascia was grasped with hemostats the cord structures were identified and a [place] drain was placed around them. The ilioinguinal nerve was identified and cut. The cremasteric muscle was dissected away from the cord structures using both cautery and blunt dissection. A hernia sac was identified and removed from the cord structures using blunt dissection. The hernia sac was suture ligated and amputated. The remnant was pushed back into the peritoneum. An L plug was placed into the indirect defect and secured with 2-0 proline. A flat piece of mesh was then attached to the lacunar ligament using a 2-0 Prolene double armed suture. The mesh was secured laterally and medially with a 2-0 Prolene, with a running suture. The tails of the mesh were wrapped around the cord structures effectively cinching down the internal ring. Once the mesh was secured the tissues were irrigated with some normal saline. No bleeding was identified. The external oblique fascia was reapproximated using 2-0 Vicryl running suture. The Luis's fascia was reapproximated using interrupted 3-0 Vicryl. The dermis was reapproximated with a running 4-0 Monocryl. The skin was cleaned and dried and skin affix was applied. The patient was woken up and taken back to recovery in stable condition. There were no immediat e complications. Sponge, instrument and needle counts were correct at the end of the case x2.
--- NOTE | 2023-06-20 11:17 | PDOC.DSDIS_ITS ---
Date of service: 06/20/23 Time of Service: 11:50 Discharge Plan Disposition Patient Disposition: Home Condition: Stable Discharge Details Reason For Visit: right inguinal hernia Attending Provider: Yvonne Garcia Primary Care Provider: Reese Lyons Home Meds and New Rx's Prescriptions: No Action nicotine (polacrilex) 4 mg gum 4 mg buccal Q2H omeprazole 20 mg capsule,delayed release(DR/EC) 20 mg PO DAILY turmeric 400 mg capsule 400 mg PO DAILY calcium carbonate [Calcium 500] 500 mg calcium (1,250 mg) tablet 500 mg PO DAILY timolol maleate 0.5 % drops 1 drp ophthalmic (eye) BID omega-3 fatty acids [Fish Oil Concentrate] 1,000 mg capsule 1,000 mg PO DAILY aspirin [Adult Aspirin Regimen] 81 mg tablet,delayed release (DR/EC) 81 mg PO DAILY multivitamin Tablet 1 tab PO DAILY garlic 300 mg capsule 300 mg PO DAILY coenzyme Q10 [Co Q-10] 10 mg capsule 10 mg PO ONCE Incruse Ellipta 62.5 mcg/actuation blister with device 1 inh inhalation DAILY albuterol sulfate [ProAir HFA] 90 mcg/actuation HFA aerosol inhaler 2 puff inhalation Q6H PRN diclofenac sodium 1 % gel 2 g topical QID Qty: 100 0RF Rx Instructions: apply to single elbow, wrist or hand; for hand includes palm/fingers/back of hand 4 times per day Discharge Instructions Instructions: Inguinal Hernia Repair (DC) Additional Instructions: Activity at Home after surgery: 1. Make sure you walk outside at least 4 times per day 2. You should be able to climb a flight of stairs 3. No driving while in pain or taking pain medications 4. No strenuous activity or heavy lifting (more then 10 lb) for 4 weeks (open surgery) Diet, Nutrition, & wound healin. Avoid alcohol until after you are recovered from your surgery 2. Make sure to eat plenty of lean protein (meat, fish, eggs, cottage cheese, beans) 3. Eat a variety of fruits and vegetables. Eat plenty of high fiber foods to avoid constipation. 4. Drink plenty of liquids to stay hydrated and avoid constipation Pain Medications: 1. Tylenol 650mg every 6 hours as needed and Ibuprofen 600 mg every 6 hours as needed. You may alternate between the 2 medications every 3 hours 2. If a narcotic has been prescribed take as directed only for breakthrough pain For Constipation: 1. Take Milk of Magnesia or MiraLax as needed for constipation Other: 1. You may shower daily. Do not scrub the incisions 2. Do not soak the incisions for 1 week 3. You may alternate ice and heat as needed for pain and swelling Wound Care: 1. Keep the incisions clean and dry Please call our office if you develop: 1. Fevers >101.5 2. Nausea or Vomiting 3. Worsening pain 4. Redness and thick discharge from the wounds If after hours please call the Hospital at and ask to speak to the on-call surgeon Referrals: Yvonne Garcia MD [ [facility] STAFF PHYSICIAN] - 07/02/23 10:00 am Activity:: see above Remove Dressings/Wound Care:: Do Not Remove Shower/Bathe:: 24 hours Diet:: As Tolerated Discharge Orders Discharge Orders: Discharge Order (Routine); Ordered 06/20/23 Ordered By: Yvonne Garcia DS: Diagnosis Discharge Diagnosis (1) Right inguinal hernia: Status: Acute Asessment and Plan: The patient is doing well post-op from their Right inguinal hernia surgery.? They are having no nausea or vomiting. They are tolerating liquids and a snack. The pt is not having any chest pain or SOB.? Their pain is adequately controlled. They have been able to urinate.? ?HEENT:? no eye pain/drainage/redness/swelling. Mild sore throat ?Cardio- NSR, no chest pain, BP stable- see VS record ?Pulm: no sob or productive cough. No hemoptysis ?Incision- dressing is c/d/i w/ no excessive bleeding or drainage ?I discussed with the patient the findings at the time of surgery and the patient?s progress. ?We reviewed expectations at home; what the patient could expect for recovery time, and in the post-operative period.? We discussed the importance of walking to avoid blood clots and pneumonia.? We discussed and reviewed the patient's post-operative wound care and dressing needs.?? We reviewed their step-herr pain management plan, Rx called to the pharmacy of their choice.? We reviewed activity and limitations-see discharge instructions. We reviewed warning signs, and when to seek medical attention- see d/c instructions.?? Patient was given a postoperative follow-up appointment. Patient verbalized understanding of their postoperative instructions, how do to take care of themselves and their incision, and the pain management plan. Please see discharge instructions.?
--- NOTE | 2023-06-20 12:23 | W.ANESPOSTOP ---
Postoperative Evaluation Date, Time and Location Date Performed: 06/20/23 Time Performed: 12:19 Patient Location: Day Surgery Unit Vital Signs Most Recent Imported Vital Signs: Most Recent Vital Signs Temp Pulse Resp BP Pulse Ox 36.4 C L 53 L 18 130/83 99 06/20/23 11:35 06/20/23 11:35 06/20/23 11:35 06/20/23 11:35 06/20/23 11:35 Pain Score Most Recent Pain Score: Most Recent Pain Score Pain Level 0 06/20/23 11:35 Assessment Mental Status: Awake (Alert & Oriented to Patient Baseline) Airway and Respiratory Function: Patent airway with normal (patient baseline) respiratory exam Cardiovascular Function: Hemodynamically Stable Hydration Status: Adequately Hydrated Nausea & Vomiting: No Nausea or Vomiting Pain: Pain is tolerable per patient Peripheral Nerve Block: Patient did not receive a nerve block
== END 2023-06-20 12:35 | disposition home or self-care (01) ==
PROVIDERS: PCP Physician Assistant; Visit Provider Surgery
PROC: (CPT 49505; principal; 2023-06-20 09:45)
DX: K40.90 Unilateral inguinal hernia, without obstruction or gangrene, not specified as recurrent (principal); J44.9 Chronic obstructive pulmonary disease, unspecified; F17.210 Nicotine dependence, cigarettes, uncomplicated; E78.5 Hyperlipidemia, unspecified
CPT/HCPCS: 49505; 76942; C1781; J0131; J0690; J1100; J1885; J2001; J2405; J2704